=== PATIENT | male | born 1980 | race Caucasian/White ===

== ENCOUNTER 2020-01-09 09:52 | Emergency (ER) | payer MEDICAID, SELFPAY ==
[2020-01-09 09:53] VITALS: BP 131/46; PULSE 85; RESP 14; TEMP 36.6; O2SAT 98; BMI 26.6
--- NOTE | 2020-01-09 10:09 | EKG12_ITS ---
Test Reason : Blood Pressure : / mmHG Vent. Rate : 071 BPM Atrial Rate : 071 BPM P-R Int : 152 ms QRS Dur : 104 ms QT Int : 426 ms P-R-T Axes : 058 073 041 degrees QTc Int : 462 ms Normal sinus rhythm Normal ECG Confirmed by DEVANTE PINO, KIM ([id number]), script editor TRISH SAHNI ([id number]) on 01/10/2020 8:35:28 AM Referred By: IZABEL Confirmed By:KIM LOW MD
--- NOTE | 2020-01-09 10:11 | ED.VIS.GEN ---
History of Present Illness Chief Complaint: Anxiety Informant: Patient Onset: Days - 2- Context: Gradual Onset Timing: Continuous Quality: anxious Current Severity: Severe Maximum Severity: Severe Worsened by: unsure Relieved by: nothing Associated Symptoms: see below. Narrative: Patient states that he feels very anxious and when asked why he states just life. He would not elaborate any further on this, but does state that he does not drink alcohol daily but he did drink more heavily than usual for when he does drink several days ago, drinking about a 12 pack of beer. He woke up the next morning feeling really crummy, and so drank a little more beer to see if that would help but it did not, and he did not really feel better. This followed by left-sided soreness in his chest that has persisted, it is nonpleuritic, he has had abdominal discomfort, he was vomiting yesterday, myalgias, malaise, no lightheadedness or syncope, no fevers or chills, no contact with COVID-19 that he knows of and he has not had it that he knows of although he presents during the pandemic. May be causing all the symptoms but he does not know. He denies having all of the symptoms that then seem to cause anxiety. Past Medical History - Allergies and Home Meds Allergies/Adverse Reactions: Allergies No Known Allergies Allergy (Verified 01/09/20 09:53) Primary Care Physician: Nita Montes [NON-STAFF] - 1 Week if not improving Dentist,Your [STAFF PHYSICIAN] - (see attached resource list for dentists if needed) Past Medical History: None Alcohol: Occasional Drugs: None Review of Systems General: Reports: Malaise. Denies: Chills, Fever Eyes: Reports: - - toothache. Denies: Visual changes - bilaterally, Diplopia ENT: Denies: Bilateral ear pain, Rhinorrhea, Sore throat Cardiovascular: Reports: Chest pain. Denies: Palpitations Respiratory: Reports: Dyspnea. Denies: Cough, Dyspnea on exertion, Orthopnea Gastrointestinal: Reports: Abdominal pain, Nausea, Vomiting. Denies: Diarrhea, Melena, Hematochezia Genitourinary: Denies: Dysuria, Hematuria, Frequency Musculoskeletal: Reports: Myalgias. Denies: Swelling Skin: Denies: Rash, Wounds Neurological: Denies: Headache, Weakness, Numbness Psych: Reports: Depression, Anxiety. Denies: Suicidal thoughts, Suicidal ideations Physical Exam Vital Signs/Narrative: Vital Signs Temp Pulse Resp BP Pulse Ox 01/09/20 09:53 97.8 F 85 14 131/46 H 98 Inital Vital Signs reviewed: Yes General: Well nourished, Well developed, No Acute Distress Head: Normocephalic, Atraumatic Eyes: Perrl, EOMI ENT: Moist mucous membranes, No rhinorrhea Neck: Supple, Nontender Cardiovascular: Regular rate, Regular rhythm, No murmurs. Negative for: Tachycardia Respiratory: No distress, CTA bilaterally, Chest nontender Abdomen: Soft, Nondistended, Normal bowel sounds, Tender - mild, diffuse, more upper; subjective tenderness only. Negative for: Guarding, Rebound tenderness Back: Nontender, Normal Inspection Extremities: Nontender, No edema. Negative for: Calf Tenderness Skin: Normal color, No rash, No Trauma Neurological: Alert, Oriented x3, Cranial nerves II-XII grossly intact, Normal Strength, Normal Sensation, Normal Gait Psychological: Depressed - w/ poor eye contact, lots of sighing; no SI/HI, delusions, hallucinations. Logical goal-directed thought processes. Diagnostic/Tx/Re-eval Impressions Chest X-Ray 01/09/20 10:30 IMPRESSION: Normal x-ray examination of the chest. Electronically Signed: Garrett Mcfadden, at 10:48 EST , Service support , 01/09/20 10:30 Chest 1 View (Portable) [RAD] Stat Laboratory Results 01/09/20 01/09/20 01/09/20 10:20 10:20 11:07 WBC 4.7 RBC 5.09 Hgb 15.7 Hct 43.7 MCV 85.9 MCH 30.8 MCHC 35.9 RDW Std Deviation 38.7 RDW Coeff of Saranya 12.5 Plt Count 223 MPV 9.0 Immature Gran % (Auto) 0.200 Neut % (Auto) 65.3 Lymph % (Auto) 27.8 Kenton % (Auto) 5.5 Eos % (Auto) 0.8 Baso % (Auto) 0.4 Absolute Neuts (auto) 3.1 Absolute Lymphs (auto) 1.31 Nucleated RBC % 0 Sodium Cancelled 137 Potassium Cancelled 4.4 Chloride Cancelled 104 Carbon Dioxide Cancelled 27.0 Anion Gap Cancelled 6 BUN Cancelled 11 Creatinine Cancelled 0.87 Estim Creat Clear Calc Cancelled 123.88 Est GFR (MDRD) Af Amer Cancelled 124 Est GFR (MDRD) Non-Af Cancelled 103 BUN/Creatinine Ratio Cancelled 12.6 Glucose Cancelled 110 H Calcium Cancelled 8.2 L Total Bilirubin Cancelled 0.90 AST Cancelled 48 H ALT Cancelled 49 Alkaline Phosphatase Cancelled 69 Troponin I Cancelled < 0.015 Total Protein Cancelled 7.3 Albumin Cancelled 3.8 Globulin Cancelled 3.5 Albumin/Globulin Ratio Cancelled 1.1 Lipase Cancelled 169 - Rhythm Strip Rhythm Strip: Sinus Rhythm Rate: 71 Ectopy: None - EKG Initial EKG Interpretation: Sinus Rhythm, No Acute Injury Pattern - normal EKG - Medical Decision Making Work-up is negative. Patient was treated with a liter of IV fluid, Zofran, Toradol, and Ativan. He is feeling better. He then discussed the fact that he has been having a tooth ache for 2 or 3 weeks, I examined him, he has a mildly tender left maxillary canine that does not appear to be abscessed. There is no gingivitis, no necrotic tissue or bleeding, no trismus. He was placed on amoxicillin, and given prescriptions for Phenergan and Vistaril, and given follow-up. I did send a Covid test as an outpatient he was given appropriate discharge instructions regarding quarantining. ED Disposition - Plan for ED Patient: Disposition: Home or Assisted Living Diagnosis: Anxiety, Chest pain, Pain, dental Instructions: ED Stress React, ED Chest Pain NonCardiac Prescriptions: Amoxicillin 500 mg PO TID #30 tab Prescription Printed proMETHazine tablet [Phenergan] 25 mg PO Q6H PRN PRN #10 tab PRN Reason: Nausea Prescription Printed Hydroxyzine Pamoate [Vistaril] 50 mg PO TID PRN PRN #15 cap PRN Reason: Anxiety Prescription Printed Referrals: Dentist,Your [STAFF PHYSICIAN] - (see attached resource list for dentists if needed) Nita Montes [NON-STAFF] - 1 Week if not improving Additional Instructions: You were tested for COVID-19, however it is sent to an offsite laboratory, and will likely take 3-5 days to come back. Reference the pamphlet including with your discharge papers for information on setting up an online portal account to check the results yourself.
[2020-01-09] MEDS: 0.9% Normal Saline 1,000 ML 999 ML IV (10:20)
[2020-01-09] MEDS: Ondansetron 4 MG/2 ML Vial IV (10:21)
[2020-01-09] MEDS: Ketorolac 30 MG/ML Syringe IV (10:22)
[2020-01-09] MEDS: LORazepam 2 MG/ML Syringe 0.5 MG IV (10:23)
--- NOTE | 2020-01-09 10:30 | RAD_ITS ---
STUDY: X-RAY CHEST REASON FOR EXAM: Male, 39 years old. ANXIETY, CHEST DISCOMFORT TECHNIQUE: Single AP portable view of the chest. COMPARISON: None. FINDINGS: The lungs are clear and expanded. There is no demonstrated pleural abnormality. Normal size heart. Normal mediastinum and leland. Normal visualized pulmonary arteries. Normal visualized aortic arch and descending thoracic aorta. Normal visualized thoracic spine. Normal visualized ribs, clavicles, and shoulders. There is no demonstrated abnormality of the visualized soft tissue structures of the upper abdomen. RAD/Chest 1 View (Portable) IMPRESSION: Normal x-ray examination of the chest. Electronically Signed: Garrett Mcfadden, at 10:48 EST , Service support ,
[2020-01-09 10:43] LABS: Absolute Lymphocyte Count 1.31 X10^3/uL (0.83-4.51); Absolute Neutrophil Count 3.1 X10^3/uL (2.0-7.7); Basophil# 0.02 X10^3/uL; Basophil% 0.4 % (0-1); Eosinophil# 0.04 X10^3/uL; Eosinophils% 0.8 % (0-5); Hematocrit 43.7 % (40-54); Hemoglobin 15.7 g/dL (13.0-16.5); Lymphocyte # 1.31 X10^3/ul (4.0); Lymphocyte % 27.8 % (19-41); Mean Corp Hgb Conc 35.9 g/dL (32-36); Mean Corpuscular Hgb 30.8 pg (27.0-32.0); Mean Corpuscular Volume 85.9 fL (80-94); Monocyte# 0.26 X10^3/uL; Monocyte% 5.5 % (0-10); NRBC Flagged by Analyzer 0 % (0-5); Neutrophil # 3.07 X10^3/uL (2.7-7.7); Neutrophil % 65.3 % (47-70); Platelet Count 223 K/mm3 (150-450); RBC Distribution Width CV 12.5 % (11.6-14.6); RBC Distribution Width SD 38.7 fl (35.1-43.9); Red Blood Count 5.09 M/mm3 (4.6-6.2); White Blood Count 4.7 K/mm3 (4.4-11.0)
--- NOTE | 2020-01-09 11:06 | CM.ED ---
Social Work Consult: Anxiety Informant: Dr. Coy Patient in COVID-19 precautions. Telephone call to patient room. No answer. Telephone call to patient cell phone. No answer. No voicemail. Will continue to follow to attempt assessment. Cassie CIFUENTES, MIRTA
[2020-01-09 11:31] LABS: ALB/GLOB Ratio 1.1 RATIO (0.9-2.4); AST(SGOT) 48 U/L (15-37); Alanine Aminotransfer ALT/SGPT 49 U/L (16-61); Albumin, Serum 3.8 g/dL (3.2-5.0); Alkaline Phosphatase 69 U/L (45-117); Anion Gap 6 (5-15); BUN 11 mg/dL (7-18); BUN/Creat Ratio 12.6 RATIO (10-20); Calcium,Total 8.2 mg/dL (8.5-10.1); Chloride 104 mmol/L (98-107); Creatinine, Serum 0.87 mg/dL (0.70-1.30); EST Glomerular Filtration Rate 103 mL/min (>60); Est Glom Filt Rate - Afr Amer 124 mL/min (>60); Estimated Creatinine Clearance 123.88 ml/min; Globulin 3.5 g/dL (2.2-4.2); Glucose 110 mg/dL (74-106); Lipase 169 U/L (73-393); Potassium 4.4 mmol/L (3.5-5.1); Protein, Total 7.3 g/dL (6.4-8.2); Sodium Level 137 mmol/L (136-145)
--- NOTE | 2020-01-09 12:40 | CM.ED ---
Social Work Consult: Anxiety Informant: Self Referral Telephone call to patient room due to COVID-19 precautions being in affect. This clinical social work aide introduced self and clinical social work aide role. Patient agreeable to speak with this clinical social work aide. Patient reports to have a lot of stress in life currently. Patient denies suicidal thoughts/plans/intents. Patient reports to want to live and to be forward focused. 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 Patient currently has no insurance. Patient reports to have support in the community. Patient reports Anxiety as only mental health history and denies any inpatient psychiatric placement or currently counseling. Patient open to receiving resources. Patient is open to receiving resources for Medicaid, [facility] [employer] [facility], Transportation, Counseling services and [facility]. Patient reports to borrow vehicles for transportation. Patient denies any concerns on returning to community and reports to have transportation to home. Medical team updated. Patient resource packet placed with patient discharge information. Cassie CIFUENTES, MIRTA
[2020-01-09 13:18] VITALS: BP 136/80; PULSE 76; RESP 16; O2SAT 98
== END 2020-01-09 13:20 | disposition home or self-care (01) ==
PROVIDERS: Emergency Provider Emergency Medicine
DX: R07.89 Other chest pain (principal); F41.9 Anxiety disorder, unspecified; K08.89 Other specified disorders of teeth and supporting structures
CPT/HCPCS: 71045; 80053; 83690; 84484; 85025; 87635; 93005; 96361; 96374; 96375; 99283; J7030; A4216; J2405; U0003

== ENCOUNTER 2020-03-28 15:20 | Emergency (ER) | payer MEDICAID, SELFPAY ==
[2020-03-28 15:22] VITALS: BP 139/93; PULSE 103; RESP 16; TEMP 36.4; O2SAT 96; BMI 28.5
--- NOTE | 2020-03-28 15:51 | EKG12_ITS ---
Test Reason : Blood Pressure : / mmHG Vent. Rate : 086 BPM Atrial Rate : 086 BPM P-R Int : 154 ms QRS Dur : 100 ms QT Int : 366 ms P-R-T Axes : 025 072 030 degrees QTc Int : 437 ms Normal sinus rhythm Normal ECG Confirmed by HANNAH PINO, TAMI ([id number]), field map editor TRISH SAHNI ([id number]) on 04/01/2020 10:54:00 AM Referred By: SHIRA Confirmed By:DAVID YOUNG MD
--- NOTE | 2020-03-28 16:05 | ED.DCSUM_ITS ---
- ER Visit Summary Date of Service: 03/28/20 Chief Complaint: Abdominal pain History of Present Illness: The patient is a 39 M presenting with right upper quadrant abdominal pain. He states this started this morning. He has associated nausea and diarrhea. He has mild shortness of breath. He denies cough. Denies fever. He complains of myalgias. He has anxiety. Denies suicidal ideation. Denies known exposure to Covid. Denies other complaints. Physical Examination: Vitals are stable. Patient is afebrile. Alert no acute distress. HEENT exam is unremarkable. Neck is supple. Lungs are clear and equal bilaterally. Heart is regular rate and rhythm. Abdomen is soft mild right upper quadrant tenderness with no guarding or rebound Extremities are unremarkable. Skin is warm and dry. Remainder of exam is unremarkable. Emergency Department Course and Treatment: EKG is sinus rhythm rate of 86 with no acute ischemic changes. Chest x-ray shows no acute process. CBC, chemistries unremarkable. Liver enzymes show ALT 69, total bili 1.1, AST 82. Lipase is normal. Troponin is negative. D-dimer normal. Covid negative. Gallbladder ultrasound shows fatty liver. Patient was given IV fluids, Zofran. On reevaluation he is resting comfortably and is feeling improved. He is concerned about his anxiety. He continues to deny suicidal ideation. He is given prescription for Vistaril. Advised to follow-up with Dr. Eason commercial construction estimator for no doctor. Advised return to ED for worsening complaints. Disposition: Discharged home Impression: Abdominal pain, anxiety This note was generated with [employer] dictation software. It may contain incorrect words, spelling, and punctuation that were not noted in review of the chart prior to signing ED Disposition - Plan for ED Patient: Instructions: ED Anxiety Reaction, ED Unknown Causes of Abdominal ... Prescriptions: hydrOXYzine pamoate capsule [Vistaril] 25 mg PO TID PRN PRN #20 cap PRN Reason: Anxiety Prescription Printed Referrals: Reuben Eason III, MD [STAFF PHYSICIAN] - Care Physician,No Primary [Primary Care Provider] -
[2020-03-28] MEDS: Ondansetron 4 MG/2 ML Vial IV (16:14)
[2020-03-28] MEDS: 0.9% Normal Saline 1,000 ML 1000 ML IV (16:14)
--- NOTE | 2020-03-28 16:15 | RAD_ITS ---
STUDY: X-RAY CHEST REASON FOR EXAM: Male, 39 years old. abd pain, back pain, weakness, chills -- HX ASTHMA TECHNIQUE: Single AP portable view of the chest. COMPARISON: 01/09/2020 FINDINGS: The lungs are clear and expanded. There is no demonstrated pleural abnormality. Normal size heart. Normal mediastinum and leland. Normal visualized pulmonary arteries. Normal visualized aortic arch and descending thoracic aorta. Normal visualized thoracic spine. Normal visualized ribs, clavicles, and shoulders. There is no demonstrated abnormality of the visualized soft tissue structures of the upper abdomen. RAD/Chest 1 View (Portable) IMPRESSION: Normal x-ray examination of the chest. Electronically Signed: Karel Baxter MD at 16:33 EST Tel , Service support ,
[2020-03-28 16:16] VITALS: BP 140/93; PULSE 85; RESP 14; O2SAT 97
[2020-03-28 16:18] LABS: Absolute Lymphocyte Count 1.39 X10^3/uL (0.83-4.51); Absolute Neutrophil Count 3.9 X10^3/uL (2.0-7.7); Basophil# 0.03 X10^3/uL; Basophil% 0.5 % (0-1); Eosinophil# 0.08 X10^3/uL; Eosinophils% 1.4 % (0-5); Hematocrit 48.7 % (40-54); Hemoglobin 16.6 g/dL (13.0-16.5); Lymphocyte # 1.39 X10^3/ul (4.0); Lymphocyte % 23.6 % (19-41); Mean Corp Hgb Conc 34.1 g/dL (32-36); Mean Corpuscular Hgb 30.1 pg (27.0-32.0); Mean Corpuscular Volume 88.4 fL (80-94); Mean Platelet Vol. 8.3 fl (6.2-12.0); Monocyte# 0.49 X10^3/uL; Monocyte% 8.3 % (0-10); NRBC Flagged by Analyzer 0 % (0-5); Neutrophil # 3.89 X10^3/uL (2.7-7.7); Neutrophil % 65.9 % (47-70); Platelet Count 168 K/mm3 (150-450); RBC Distribution Width CV 12.6 % (11.6-14.6); RBC Distribution Width SD 41.1 fl (35.1-43.9); Red Blood Count 5.51 M/mm3 (4.6-6.2); White Blood Count 5.9 K/mm3 (4.4-11.0)
[2020-03-28 16:31] LABS: D-Dimer Quantitative (DVT/PE) 0.34 FEU/ug/m (0.27-0.49)
[2020-03-28 16:36] LABS: AST(SGOT) 82 U/L (15-37); Alanine Aminotransfer ALT/SGPT 69 U/L (16-61); Alkaline Phosphatase 82 U/L (45-117); Anion Gap 7 (5-15); BUN 9 mg/dL (7-18); BUN/Creat Ratio 10.3 RATIO (10-20); Calcium,Total 9.2 mg/dL (8.5-10.1); Chloride 103 mmol/L (98-107); Creatinine, Serum 0.88 mg/dL (0.70-1.30); EST Glomerular Filtration Rate 102 mL/min (>60); Est Glom Filt Rate - Afr Amer 123 mL/min (>60); Estimated Creatinine Clearance 122.47 ml/min; Globulin 3.9 g/dL (2.2-4.2); Glucose 91 mg/dL (74-106); Lipase 265 U/L (73-393); Protein, Total 7.9 g/dL (6.4-8.2); Sodium Level 135 mmol/L (136-145)
--- NOTE | 2020-03-28 16:38 | US_ITS ---
STUDY: ABDOMINAL ULTRASOUND - RIGHT UPPER QUADRANT REASON FOR VISIT: Male, 39 years old RUQ PAIN TECHNIQUE: Ultrasound evaluation of the right upper quadrant was performed with real-time and static hay-scale imaging. TECHNICAL QUALITY: Adequate. COMPARISON: None. FINDINGS: Liver: The liver measures 17.4 cm. There is increased echogenicity consistent with fatty infiltration. The bile ducts are within normal limits. There is hepatic color flow. The direction of portal flow is hepatopetal. There is no demonstrated mass lesion. Gallbladder: Normal distended gallbladder. The gallbladder wall measures 2 mm. There is a negative sonographic Head''s sign. There is no pericholecystic fluid. There are no gallstones. Common Bile Duct (C.B.D.): The common bile duct measures 5 mm. Pancreas: Normal size of the head, body and tail of the pancreas. There is normal echogenicity of the pancreas. There is no demonstrated pancreatic mass or cyst. Right Kidney: Normal size of the right kidney. The right kidney measures 11.9 cm. Normal renal cortex. The right cortex measures 1.2 cm. Tiny subcentimeter exophytic cyst in the midsection right kidney. There is no right hydronephrosis. US/Abdomen Limited IMPRESSION: Fatty infiltration of the liver. Electronically Signed: Karel Baxter MD at 17:55 EST Tel , Service support ,
[2020-03-28 18:06] VITALS: BP 135/89; PULSE 90; RESP 19; O2SAT 95
--- NOTE | 2020-03-28 18:24 | ED.DEP ---
ED Disposition - Plan for ED Patient: Instructions: ED Anxiety Reaction, ED Unknown Causes of Abdominal ... Prescriptions: hydrOXYzine pamoate capsule [Vistaril] 25 mg PO TID PRN PRN #20 cap PRN Reason: Anxiety Prescription Printed Referrals: Care Physician,No Primary [Primary Care Provider] - Reuben Eason III, MD [STAFF PHYSICIAN] -
[2020-03-28 18:36] VITALS: BP 159/79; PULSE 91; RESP 18; O2SAT 99
--- NOTE | 2020-03-28 18:37 | ED.RN ---
THIS NURSE REVIEWED D/C INSTRUCTIONS WITH PT. PT VERBALIZED UNDERSTANDING OF INSTRUCTIONS. IV D/C. IV CATHETER INTACT. PT TOLERATED WELL. PT DENIES FURTHER NEEDS OR QUESTIONS AT THIS TIME.
== END 2020-03-28 18:38 | disposition home or self-care (01) ==
LOC: ED 16:15
PROVIDERS: Emergency Provider Emergency Medicine
DX: R10.11 Right upper quadrant pain (principal); F41.9 Anxiety disorder, unspecified; K76.0 Fatty (change of) liver, not elsewhere classified
CPT/HCPCS: 71045; 76705; 80053; 83690; 84484; 85025; 85379; 87426; 93005; 96361; 96374; 99283; J7030; J2405

== ENCOUNTER 2020-05-20 14:55 | Emergency (ER) | payer MEDICAID, SELFPAY ==
[2020-05-20 14:57] VITALS: BP 168/110; PULSE 110; RESP 16; TEMP 36.1; O2SAT 95; BMI 29.2
--- NOTE | 2020-05-20 15:21 | ED.VIS.GEN ---
History of Present Illness Chief Complaint: Substance Abuse Informant: Patient Narrative: Already 1-year-old male presents the emergency department asking for detox from alcohol. He tells me that he tried to detox himself in the past and it was very bad. He tells me that prior to 's Day he would drink every day but only a couple of beers and stuff like that. Tells me on 's Day he drinks at least 2/5 of whiskey and since that time has been drinking vodka and beer. He drank a bottle of wine prior to arriving in the emergency department to be able to just come in here. He states that he went through divorce and used to have a significant income. He stops speaking closes his eyes and wishes to change the subject with any further questioning along those lines. He denies any drug use. No recent illnesses. He states that due to the bottle of wine he is not having any withdrawal symptoms at the present time. Past Medical History - Allergies and Home Meds Allergies/Adverse Reactions: Allergies No Known Allergies Allergy (Verified 05/20/20 14:58) Primary Care Physician: [facility] [STAFF PHYSICIAN] - Past Medical History: - - Alcoholism Surgical History: noncontributory Lives: Alone Smoking Status: Never smoker Alcohol: Heavy Drugs: None Review of Systems General: Denies: Chills, Fever, Sweats Eyes: Denies: Visual changes - bilaterally, Diplopia ENT: Denies: Rhinorrhea, Sore throat Cardiovascular: Denies: Chest pain, Palpitations Respiratory: Denies: Dyspnea, Cough, Dyspnea on exertion Gastrointestinal: Denies: Abdominal pain, Nausea, Vomiting, Diarrhea, Melena, Hematochezia Genitourinary: Denies: Dysuria, Hematuria, Frequency Musculoskeletal: Denies: Back pain, Extremity Pain Skin: Denies: Rash, Wounds Neurological: Denies: Headache, Weakness, Numbness Psych: Reports: Depression, Anxiety. Denies: Suicidal thoughts, Suicidal ideations Physical Exam Vital Signs/Narrative: Vital Signs Temp Pulse Resp BP Pulse Ox 05/20/20 14:57 96.9 F L 110 H 16 168/110 H 95 Inital Vital Signs reviewed: Yes General: Well nourished, Well developed, No Acute Distress Head: Normocephalic, Atraumatic Eyes: Perrl, EOMI ENT: Moist mucous membranes, No rhinorrhea Neck: Supple, Nontender Cardiovascular: Regular rate, Regular rhythm, No murmurs Respiratory: No distress, CTA bilaterally, Chest nontender Abdomen: Soft, Nontender, Nondistended, Normal bowel sounds Back: Nontender, Normal Inspection Extremities: Nontender, No edema Skin: Normal color, No rash Neurological: Alert, Oriented x3, Cranial nerves II-XII grossly intact, Normal Strength, Normal Sensation Psychological: Depressed, Tearful - At times Diagnostic/Tx/Re-eval Chest X-Ray - ED: Left Infiltrate Laboratory Last Values Urine Opiates Screen NEGATIVE (< 300 ng/mL) 05/20/20 15:23 Urine Methadone Screen NEGATIVE (< 300 ng/mL) 05/20/20 15:23 Ur Barbiturates Screen NEGATIVE (< 200 ng/mL) 05/20/20 15:23 Ur Phencyclidine Scrn NEGATIVE (< 25 ng/mL) 05/20/20 15:23 Ur Amphetamines Screen NEGATIVE (<1000 ng/mL) 05/20/20 15:23 U Methamphetamin-MDMA NEGATIVE (< 500 ng/mL) 05/20/20 15:23 U Benzodiazepines Scrn NEGATIVE (< 200 ng/mL) 05/20/20 15:23 Urine Cocaine Screen NEGATIVE (< 300 ng/mL) 05/20/20 15:23 U Cannabinoids Screen NEGATIVE (< 50 ng/mL) 05/20/20 15:23 Ur Drug Screen Comment 05/20/20 15:23 - Medical Decision Making ED addiction labs will be obtained. If the patient is agreeable to inpatient detox program rules I will talk with the hospitalist for admission. Unfortunately the patient has decided that being away from his cell phone and not being able to chew tobacco is going to prohibit him from seeking detox. Therefore he has made the decision to leave. Patient appears to have the capacity to do so. ED Disposition - Plan for ED Patient: Disposition: Against Medical Advice Diagnosis: Alcohol abuse, Alcohol withdrawal Instructions: ED Alcohol Abuse Referrals: [facility] [STAFF PHYSICIAN] -
--- NOTE | 2020-05-20 15:37 | ED.RN ---
THIS NURSE WENT INTO ROOM TO GO OVER RAMP CONTRACT. PT UPSET BECAUSE THE CONTRACT STATES NO PERSONAL BELONGINGS. PT WOULD LIKE CELLPHONE WHILE IN PROGRAM AND I EDUCATED PT WHY THERE ARE NO BELONGINGS DURING THE PROGRAM. PT UPSET STATING THATS A DUMBASS RULE, WITH NO CELL PHONE THAT WILL RUIN MY LIFE. DR STOVER MADE AWARE. 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
[2020-05-20 15:52] LABS: Amphetamine Urine VISTA NEGATIVE (<1000 ng/mL); Barbiturate Urine VISTA NEGATIVE (< 200 ng/mL); Benzodiazepine Urine VISTA NEGATIVE (< 200 ng/mL); Cocaine Urine VISTA NEGATIVE (< 300 ng/mL); Ecstacy Urine VISTA NEGATIVE (< 500 ng/mL); Methadone Urine VISTA NEGATIVE (< 300 ng/mL); PCP Urine VISTA NEGATIVE (< 25 ng/mL); THC Urine VISTA NEGATIVE (< 50 ng/mL); Vista UDS pH Range 5
--- NOTE | 2020-05-20 16:00 | CM.ED ---
SOCIAL WORK Referral Source: NurseNikia Reason for Consult: Substance Abuse resources Met with patient in room. Introduced role and reason for consult. Patient standing at bedside and putting on shirt upon this worker entering room. Patient states I came here for help and you guys want to take my phone. That is not going to help me. Patient presented for detox from alcohol. Patient states girlfriend and children do not know he is here and did not want them to know. Patient states, I just wanted to keep my phone so I could stay in contact with them. Patient unhappy about RAMP agreement. Patient asking if anything can be done. 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 Patient states wishes to leave. Attempted to give patient community resources. Patient declined resources. Nurse updated on the above. VANE Solano, GUM MAKER
--- NOTE | 2020-05-20 16:20 | ED.RN ---
PT SPOKE WITH CLOTH TESTER DANI. ROY DECIDING TO LEAVE AND NOT DO RAMP PROGRAM.
== END 2020-05-20 18:16 | disposition left against medical advice (07) ==
PROVIDERS: Emergency Provider Emergency Medicine
DX: F10.239 Alcohol dependence with withdrawal, unspecified (principal)
CPT/HCPCS: 80307; 99281; A4216

== ENCOUNTER 2020-05-21 11:54 | Inpatient (IN) | payer MEDICAID, SELFPAY ==
[2020-05-20 14:57] VITALS: BMI 29.2
[2020-05-21 11:56] VITALS: BP 140/93; PULSE 105; RESP 16; TEMP 36.6; O2SAT 96; BMI 29.1
--- NOTE | 2020-05-21 12:11 | ED.VISSUMM ---
- ER Visit Summary Date of Service: 05/21/20 Chief Complaint: [Requesting detox from alcohol] History of Present Illness: The patient is a 40 M [presents to the emergency department stating that he has been drinking heavily since [facility] [place] Day. Patient is chasing the dragon meaning that once he gets drunk he just wants to keep chasing that high. Patient has detoxed on his own in the past but never through a formal program. He was seen in the emergency department yesterday and did not feel he could be without his cell phone and chewing tobacco so he left. Patient is ready now to be admitted and go through a detox program. His last alcoholic drink was about an hour ago. Patient states that he drinks everything from beer to liquor at a wine. He denies any illicit drug use. He otherwise has no medical history. He denies any depression or suicidality.] Physical Examination: [HEENT-PERRLA, EOMI. Cranial nerves II through XII grossly intact. TMs clear. Mucous membranes moist. No adenopathy. Cardiovascular-regular rate and rhythm without murmur or ectopy Lungs-clear to auscultation, chest wall stable without crepitus or subcu emphysema Abdomen-normoactive bowel sounds, soft, nontender, no rebound or rigidity, no peritoneal signs. Extremities-intact ?4, normal range of motion, normal pulses, atraumatic] Test Results: [CBC with it was normal. Chemistries and LFTs were normal. Toxicology screen was negative. Alcohol level pending.] Emergency Department Course and Treatment: [The line established on arrival.] Treatment Plan: [Discussed with hospitalist will evaluate patient for admission] Disposition: [Admit] Impression: [Alcohol abuse Request for detox from alcohol] This note was generated with [employer] dictation software. It may contain incorrect words, spelling, and punctuation that were not noted in review of the chart prior to signing ED Disposition - Plan for ED Patient: Referrals: Care Physician,No Primary [Primary Care Provider] -
[2020-05-21 12:41] LABS: Absolute Lymphocyte Count 2.28 X10^3/uL (0.83-4.51); Absolute Neutrophil Count 3.2 X10^3/uL (2.0-7.7); Basophil# 0.03 X10^3/uL; Basophil% 0.5 % (0-1); Eosinophils% 3.3 % (0-5); Hemoglobin 17.2 g/dL (13.0-16.5); Lymphocyte # 2.28 X10^3/ul (4.0); Lymphocyte % 37.6 % (19-41); Mean Corp Hgb Conc 35.1 g/dL (32-36); Mean Corpuscular Hgb 31.4 pg (27.0-32.0); Mean Corpuscular Volume 89.4 fL (80-94); Mean Platelet Vol. 8.4 fl (6.2-12.0); Monocyte# 0.38 X10^3/uL; Monocyte% 6.3 % (0-10); NRBC Flagged by Analyzer 0 % (0-5); Neutrophil # 3.15 X10^3/uL (2.7-7.7); Neutrophil % 51.8 % (47-70); Platelet Count 209 K/mm3 (150-450); RBC Distribution Width CV 12.5 % (11.6-14.6); Red Blood Count 5.48 M/mm3 (4.6-6.2); White Blood Count 6.1 K/mm3 (4.4-11.0)
[2020-05-21 12:57] LABS: ALB/GLOB Ratio 1.1 RATIO (0.9-2.4); AST(SGOT) 36 U/L (15-37); Alanine Aminotransfer ALT/SGPT 41 U/L (16-61); Albumin, Serum 4.3 g/dL (3.2-5.0); Alkaline Phosphatase 80 U/L (45-117); Anion Gap 9 (5-15); BUN 12 mg/dL (7-18); BUN/Creat Ratio 12.5 RATIO (10-20); Calcium,Total 8.9 mg/dL (8.5-10.1); Chloride 106 mmol/L (98-107); Creatinine, Serum 0.96 mg/dL (0.70-1.30); EST Glomerular Filtration Rate 92 mL/min (>60); Est Glom Filt Rate - Afr Amer 111 mL/min (>60); Estimated Creatinine Clearance 111.15 ml/min; Globulin 3.9 g/dL (2.2-4.2); Glucose 107 mg/dL (74-106); Potassium 3.9 mmol/L (3.5-5.1); Protein, Total 8.2 g/dL (6.4-8.2); Sodium Level 141 mmol/L (136-145)
[2020-05-21 12:57] LABS: Amphetamine Urine VISTA NEGATIVE (<1000 ng/mL); Barbiturate Urine VISTA NEGATIVE (< 200 ng/mL); Benzodiazepine Urine VISTA NEGATIVE (< 200 ng/mL); Cocaine Urine VISTA NEGATIVE (< 300 ng/mL); Ecstacy Urine VISTA NEGATIVE (< 500 ng/mL); Methadone Urine VISTA NEGATIVE (< 300 ng/mL); PCP Urine VISTA NEGATIVE (< 25 ng/mL); THC Urine VISTA NEGATIVE (< 50 ng/mL); Vista UDS pH Range 6
--- NOTE | 2020-05-21 13:08 | NURSING ---
MED SURG ROSA ETOH ABUSE, REQUEST FOR DETOX
--- NOTE | 2020-05-21 13:22 | CM.ED ---
SOCIAL WORK Reason for Consult: Substance Abuse- patient requesting detox from alcohol Patient presents to ER for detox from alcohol. Patient was seen yesterday for same and would not sign agreement for RAMP as he did not want to be without his phone. Nurse, Palma reviewed RAMP agreement with patient again today. Patient now in agreement. RAMP agreement signed by patient. Patient reports last drink was an hour prior to arrival. Call to [facility] Treatment Navigator, [place]. Updated on patient's admission to [facility]. [place] reports will update Renae who will complete assessment. Plan: Admit to [facility] Maicol Mckinley MSW, PUBLIC EVENTS FACILITIES RENTAL MANAGER
[2020-05-21 13:23] VITALS: BP 147/100; PULSE 89; RESP 16; TEMP 36.8; O2SAT 95
[2020-05-21 14:35] VITALS: BMI 27.1
[2020-05-21 14:44] VITALS: BMI 27.2
[2020-05-21] MEDS: Gabapentin 300 MG Capsule PO (15:41)
[2020-05-21] MEDS: Lactated Ringers 1,000 ML 100 ML IV (15:42)
[2020-05-21] MEDS: Phenobarbital 32.4 MG Tablet 64.8 MG PO ×3 (15:42→22:48)
[2020-05-21] MEDS: 0.9% Saline Lock 10 ML Syringe IV (15:43)
[2020-05-21 16:25] VITALS: RESP 16; O2SAT 98
--- NOTE | 2020-05-21 16:52 | HP.PCM_ITS ---
Problem List (1) Alcohol withdrawal Status: Acute (2) Alcohol abuse Status: Chronic (3) Erythrocytosis Status: Chronic (4) Tobacco chew use Status: Chronic History of Present Illness Date of Admission: 05/21/20 Mr. Rizzo is a 40 year old WM with a past medical history of alcohol abuse chewing tobacco abuse presented to the emergency department [facility] on 05/21/2020 requesting acute alcohol detox. He reports he fell off the wagon since [facility] [employer] but reported that he had not been drinking much prior to that. He estimates that he drinks at least 1/5 a day but probably more and drinks any alcohol he can possibly get his hands on. Who presented to the emergency department yesterday but did not feel he could go without his cell phone or was chewing tobacco so he left, but at this time he feels he is ready to go through the detox program. He is never been through detox program in the past. He denies any illicit drug use and has no other medical issues. Reports that he feels that he is starting to withdrawal and that his last drink was approximately 1 hour and a half prior to arrival. His vital signs in the em ergency department show that he is afebrile, mildly tachycardic with a heart rate of 105, hypertensive with a blood pressure of 140/93, his respiratory rate is 16 and his oxygen saturations are 96 on room air. His labs are overall unremarkable and his tox screen is positive only for alcohol with a blood alcohol level of 318. He will be admitted to [facility] for alcohol detox. Past Medical History Past Medical History (Chronic Problems): Chronic Problems Alcohol abuse (Chronic) Erythrocytosis (Chronic) Tobacco chew use (Chronic) Allergies No Known Allergies Allergy (Verified 05/21/20 11:56) Home Medications: Ambulatory Orders Medication Instructions Recorded hydrOXYzine pamoate capsule 25 mg PO TID PRN PRN #20 cap 03/28/20 [Vistaril] Surgical History: noncontributory Lives: With Family Smoking Status: Current every day smoker Tobacco Use: Chew Alcohol: Heavy Drugs: None Review of Systems Constitutional: Reports: Chills, Fatigue. Denies: Anorexia, Fever, Night Sweats, Malaise, Weakness, Weight Change Eyes: Denies: Blurred vision, Conjunctivae Inflammation, Double vision, Drainage, Eyelid Inflammation, Pain, Redness, Vision Change HEENT: Denies: Difficulty Hearing, Difficulty Swallowing, Ear Pain, Eye Pain, Head Aches, Nasal bleeding, Nasal Congestion, Post Nasal Drip, Sinus Congestion, Sinus Drainage, Sore Throat, Visual Changes Cardiovascular: Denies: Chest Pain, Claudication, Chest Pressure, Chest Tightness, Edema, Heaviness, Light Headedness, Orthopnea, Palpitations, Paroxysmal Noc. Dyspnea, Syncope Respiratory: Denies: Cough, Hemoptysis, Pleuritic Pain, Shortness of Breath, Sputum production, Wheezing Gastrointestinal: Reports: Nausea. Denies: Abdominal Pain, Constipation, Diarrhea, Dyspepsia, Hematemesis, Hematochezia, Melena, Vomiting Genitourinary: Denies: Dysuria, Frequency, Hematuria, Hesitancy, Incontinence, Nocturia, Retention, Urgency Musculoskeletal: Denies: Back Pain, Joint Pain, Joint stiffness, Joint swelling, Joint Tenderness, Muscle pain, Neck Pain Skin: Denies: Dryness, Jaundice, Lesions, Pruritis, Rash, Wounds Neurological: Reports: Tremor. Denies: Balance problems, Blurred vision, Double vision, Change in Speech, Slurred speech, Confusion, Difficulty swallowing, Focal weakness, Headaches, Incoordination, Numbness, Tingling, Seizures Psychiatric: Denies: Anxiety, Depression Endocrine: Denies: Change in Body Habitus, Heat/ Cold Intolerance, Polydipsia, Polyuria Hematologic/ Lymphatic: Denies: Adenopathy, Anemia, Easy Bruising, Easy Bleeding, Petechiae, Purpura VTE Information - Inpt Only VTE Present on Admission: No VTE Mechan Device Prophylaxis: None VTE Pharm Prophylaxis ordered?: No Reason prophylaxis not ordered:: Treatment Not Indicated - Early ambulation - Physical Exam Vitals/I&O's: Vital Signs Temp Pulse Resp BP Pulse Ox 98.2 F 89 16 147/100 H 98 05/21/20 13:23 05/21/20 13:23 05/21/20 16:25 05/21/20 13:23 05/21/20 16:25 Oxygen Delivery Method Room Air Weight: 91 kg Body Mass Index (BMI) 27.1 General: Alert, Oriented x3, Cooperative, No apparent distress, Well developed, Well nourished, - - Legs white male, lying in bed, DIP of 2 in his mouth, mildly tremulous, no acute distress nontoxic HEENT: Atraumatic, PERRLA, EOMI, Normocephalic, EAC Clear Oral: No Gingival or Mucosal Lesions/ Ulcerations, Dry Mucosa, - - Tobacco lower lip active view of mucosa-reevaluate tomorrow Neck: Supple, No JVD, Trachea Midline, Thyroid Normal Size and Texture Lungs: Clear to auscultation, Normal air movement, No rhonchi, No wheeze, No rales Cardiovascular: Regular Rhythm, Normal S1, Normal S2, No murmurs, No Ectopic Activity, No rub noted, No Gallop, Tachycardic - Mild Abdomen: Bowel Sounds Present, Soft, Non Tender, Non-Distended Extremities: No clubbing, No cyanosis, No edema, Capillary Refill Less than 3 Seconds, Peripheral Pulses Normal Neurological: Cranial nerves II-XII grossly intact, Neuro grossly intact, Muscle tone normal, Sensory exam intact to light touch and pain, Coordination normal Psych/Mental Status: Appropriate, Flat Affect Laboratory Results 05/21/20 12:30: WBC 6.1, RBC 5.48, Hgb 17.2 H, Hct 49.0, MCV 89.4, MCH 31.4, MCHC 35.1, RDW Std Deviation 41.0, RDW Coeff of [place] 12.5, Plt Count 209, MPV 8.4, Immature Gran % (Auto) 0.500, Neut % (Auto) 51.8, Lymph % (Auto) 37.6, [place] % (Auto) 6.3, Eos % (Auto) 3.3, Baso % (Auto) 0.5, Absolute Neuts (auto) 3.2, Absolute Lymphs (auto) 2.28, Nucleated RBC % 0 05/21/20 12:30: Sodium 141, Potassium 3.9, Chloride 106, Carbon Dioxide 26.0, Anion Gap 9, BUN 12, Creatinine 0.96, Estim Creat Clear Calc 111.15, Est GFR (MDRD) Af Amer 111, Est GFR (MDRD) Non-Af 92, BUN/Creatinine Ratio 12.5, Glucose 107 H, Calcium 8.9, Total Bilirubin 0.60, AST 36, ALT 41, Alkaline Phosphatase 80, Total Protein 8.2, Albumin 4.3, Globulin 3.9, Albumin/Globulin Ratio 1.1 05/21/20 12:30: Ethyl Alcohol 318.0 H* 05/21/20 12:37: Urine Opiates Screen NEGATIVE, Urine Methadone Screen NEGATIVE, Ur Barbiturates Screen NEGATIVE, Ur Phencyclidine Scrn NEGATIVE, Ur Amphetamines Screen NEGATIVE, U Methamphetamin-MDMA NEGATIVE, U Benzodiazepines Scrn NEGATI VE, Urine Cocaine Screen NEGATIVE, U Cannabinoids Screen NEGATIVE, Ur Drug Screen Comment Current Medications Al Hydroxide/Mg Hydroxide (Mag Hydrox/Al Hydrox/Simeth 30 Ml Udc) 30 ml PO Q6H PRN PRN PRN Reason: Gastric Burning Albuterol Sulfate (Albuterol 2.5 Mg/3 Ml Vial.Neb.) 2.5 mg INHALATION Q2H PRN PRN PRN Reason: Shortness of Breath/Wheezing Dicyclomine HCl (Dicyclomine 10 Mg Capsule) 20 mg PO Q6H PRN PRN PRN Reason: abdominal discomfort Folic Acid (Folic Acid 1 Mg Tablet) 1 mg PO DAILY@0800 [facility] Gabapentin (Gabapentin 300 Mg Capsule) 300 mg PO Q8H PRN PRN PRN Reason: moderate to severe anxiety Last Admin: 05/21/20 15:41 Dose: 300 mg Documented by: Hydroxyzine Pamoate (Hydroxyzine Sol 25 Mg Capsule) 50 mg PO Q4H PRN PRN PRN Reason: mild anxiety Lactated Ringer's () 1,000 mls @ 100 mls/hr IV .Q10H BREANN Stop: 05/22/20 00:31 Last Admin: 05/21/20 15:42 Dose: 100 mls/hr Documented by: Loperamide HCl (Loperamide 2 Mg Capsule) 2 mg PO Q4H PRN PRN PRN Reason: LOOSE STOOLS Lorazepam (Lorazepam 1 Mg Tablet) 2 mg PO Q2H PRN PRN; Protocol PRN Reason: CIWA score > 8 but <15 Lorazepam (Lorazepam 1 Mg Tablet) 2 mg PO UD PRN; Protocol PRN Reason: CIWA score >/=15. Melatonin (Melatonin 3 Mg Tablet) 3 mg PO QHS PRN PRN PRN Reason: INSOMNIA Multivitamins/Minerals (Multivitamins,Ther W-Minerals Tablet) 1 tablet PO [facility]CM [facility] Ondansetron HCl (Ondansetron 8 Mg Tablet) 8 mg PO Q8H PRN PRN PRN Reason: NAUSEA Phenobarbital (Phenobarbital 32.4 Mg Tablet) 97.2 mg PO Q4H BREANN; Taper Stop: 05/25/20 22:59 Last Admin: 05/21/20 15:42 Dose: 97.2 mg Documented by: Sodium Chloride (0.9% Saline Lock 10 Ml Syringe) 10 - 40 ml IV UD PRN PRN Reason: SALINE FLUSH Last Admin: 05/21/20 15:43 Dose: 10 ml Documented by: Thiamine HCl (Thiamine Hydrochloride 100 Mg Tablet) 200 mg PO DAILYCM BREANN Stop: 05/25/20 08:01 Trazodone HCl (Trazodone 100 Mg Tablet) 100 mg PO QHS PRN PRN Reason: INSOMNIA Assessment/Plan All Active Problems Alcohol withdrawal (Acute) Acute alcohol withdrawal -Phenobarb taper -As needed Ativan -Thiamine/folate -Supportive medications -180 consultation Erythrocytosis -Suspect mild dehydration -Repeat CBC in a.m. -IV fluids x1 L today Alcohol abuse-chronic -See above Tobacco abuse -Patient uses chewing tobacco -Nicotine replacement ordered DVT prophylaxis -Early ambulation CODE STATUS -Full code Inpatient E&M: 10482 Init Hosp L2
[2020-05-21 18:00] VITALS: BP 114/74; PULSE 87; RESP 18; TEMP 36.4; O2SAT 97
[2020-05-21] MEDS: hydrOXYzine PAM 25 MG Capsule 50 MG PO (18:43)
[2020-05-21] MEDS: LORazepam 1 MG Tablet 2 MG PO ×2 (18:45→22:48)
[2020-05-21 22:42] VITALS: BP 127/77; PULSE 99; RESP 18; TEMP 36.8; O2SAT 95
[2020-05-21] MEDS: traZODone 100 MG Tablet PO (22:48)
[2020-05-22] MEDS: Phenobarbital 32.4 MG Tablet 64.8 MG PO ×6 (02:53→23:18)
[2020-05-22] MEDS: Gabapentin 300 MG Capsule PO ×2 (02:53→21:54)
[2020-05-22] MEDS: 0.9% Saline Lock 10 ML Syringe IV ×2 (02:55→15:15)
[2020-05-22 02:56] VITALS: BP 125/75; PULSE 97; RESP 17; TEMP 36.6; O2SAT 98
[2020-05-22] MEDS: hydrOXYzine PAM 25 MG Capsule 50 MG PO (06:42)
[2020-05-22 08:24] VITALS: BP 132/84; PULSE 75; RESP 16; TEMP 36.7; O2SAT 96
[2020-05-22] MEDS: Thiamine Hydrochloride 100 MG Tablet 200 MG PO (08:30)
[2020-05-22] MEDS: Folic Acid 1 MG Tablet PO (08:30)
[2020-05-22] MEDS: Multivitamins,Ther W-Minerals Tablet 1 TABLET PO (08:30)
--- NOTE | 2020-05-22 09:54 | ADDICTION ---
This singer songwriter met with PT in his room to conduct ASAM, MSE, AUDIT assessments and to plan for d/c. PT A+Ox4 and participated appropriately. All assessments completed and faxed to [facility] and placed in PT's chart. PT did not request assistance with transportation. PT to f[facility]u with [facility] for [facility] and counseling services and was provided contact information for AoD agencies in [place] and [facility].
[2020-05-22 10:54] VITALS: BP 151/91; PULSE 100; RESP 18; TEMP 36.9; O2SAT 95
[2020-05-22] MEDS: Loperamide 2 MG Capsule PO ×2 (11:47→18:25)
--- NOTE | 2020-05-22 12:19 | PCM.PN.HOSP ---
Patient Problems: Active and Suspected Problems Alcohol withdrawal (Acute) Subjective: States he is feeling much better today. 180 is at the bedside having a conversation with the patient and the plan is to follow-up with the counseling center as he is already established there and other resources for alcohol addiction or made available to the patient. Vitals/I&O's: Vital Signs Temp Pulse Resp BP Pulse Ox 98.4 F 100 18 151/91 H 95 05/22/20 10:54 05/22/20 10:54 05/22/20 10:54 05/22/20 10:54 05/22/20 10:54 Oxygen Delivery Method Room Air Weight: 91 kg Body Mass Index (BMI) 27.1 Intake and Output for Last 24 Hours 05/20/20 05/21/20 05/22/20 23:59 23:59 23:59 Intake Total 2700 / 2700 Balance 2700 / 2700 General: Alert, Oriented x3, Cooperative, No apparent distress, Well developed, Well nourished, - - Patient sitting up in bed, appears much more comfortable than yesterday HEENT: Atraumatic, Normocephalic Oral: Moist Mucosa, No Gingival or Mucosal Lesions/ Ulcerations Lungs: Clear to auscultation, Normal air movement, No rhonchi, No wheeze, No rales Cardiovascular: Regular rate, Regular Rhythm, Normal S1, Normal S2, No murmurs, No Ectopic Activity, No rub noted Abdomen: Bowel Sounds Present, Soft, Non Tender Extremities: No clubbing, No cyanosis, No edema, Capillary Refill Less than 3 Seconds, Peripheral Pulses Normal Neurological: Cranial nerves II-XII grossly intact, Neuro grossly intact Psych/Mental Status: Normal Affect, Appropriate Laboratory Results 05/21/20 12:30: WBC 6.1, RBC 5.48, Hgb 17.2 H, Hct 49.0, MCV 89.4, MCH 31.4, MCHC 35.1, RDW Std Deviation 41.0, RDW Coeff of [place] 12.5, Plt Count 209, MPV 8.4, Immature Gran % (Auto) 0.500, Neut % (Auto) 51.8, Lymph % (Auto) 37.6, [place] % (Auto) 6.3, Eos % (Auto) 3.3, Baso % (Auto) 0.5, Absolute Neuts (auto) 3.2, Absolute Lymphs (auto) 2.28, Nucleated RBC % 0 05/21/20 12:30: Sodium 141, Potassium 3.9, Chloride 106, Carbon Dioxide 26.0, Anion Gap 9, BUN 12, Creatinine 0.96, Estim Creat Clear Calc 111.15, Est GFR (MDRD) Af Amer 111, Est GFR (MDRD) Non-Af 92, BUN/Creatinine Ratio 12.5, Glucose 107 H, Calcium 8.9, Total Bilirubin 0.60, AST 36, ALT 41, Alkaline Phosphatase 80, Total Protein 8.2, Albumin 4.3, Globulin 3.9, Albumin/Globulin Ratio 1.1 05/21/20 12:30: Ethyl Alcohol 318.0 H* 05/21/20 12:37: Urine Opiates Screen NEGATIVE, Urine Methadone Screen NEGATIVE, Ur Barbiturates Screen NEGATIVE, Ur Phencyclidine Scrn NEGATIVE, Ur Amphetamines Screen NEGATIVE, U Methamphetamin-MDMA NEGATIVE, U Benzodiazepines Scrn NEGATIVE, Urine Cocaine Screen NEGATIVE, U Cannabinoids Screen NEGATIVE, Ur Drug Screen Comment Current Medications Al Hydroxide/Mg Hydroxide (Mag Hydrox/Al Hydrox/Simeth 30 Ml Udc) 30 ml PO Q6H PRN PRN PRN Reason: Gastric Burning Albuterol Sulfate (Albuterol 2.5 Mg/3 Ml Vial.Neb.) 2.5 mg INHALATION Q2H PRN PRN PRN Reason: Shortness of Breath/Wheezing Dicyclomine HCl (Dicyclomine 10 Mg Capsule) 20 mg PO Q6H PRN PRN PRN Reason: abdominal discomfort Folic Acid (Folic Acid 1 Mg Tablet) 1 mg PO DAILY@0800 [facility] Last Admin: 05/22/20 08:30 Dose: 1 mg Documented by: Gabapentin (Gabapentin 300 Mg Capsule) 300 mg PO Q8H PRN PRN PRN Reason: moderate to severe anxiety Last Admin: 05/22/20 02:53 Dose: 300 mg Documented by: Hydroxyzine Pamoate (Hydroxyzine Sol 25 Mg Capsule) 50 mg PO Q4H PRN PRN PRN Reason: mild anxiety Last Admin: 05/22/20 06:42 Dose: 50 mg Documented by: Loperamide HCl (Loperamide 2 Mg Capsule) 2 mg PO Q4H PRN PRN PRN Reason: LOOSE STOOLS Last Admin: 05/22/20 11:47 Dose: 2 mg Documented by: Lorazepam (Lorazepam 1 Mg Tablet) 2 mg PO Q2H PRN PRN; Protocol PRN Reason: CIWA score > 8 but <15 Last Admin: 05/21/20 22:48 Dose: 2 mg Documented by: Lorazepam (Lorazepam 1 Mg Tablet) 2 mg PO UD PRN; Protocol PRN Reason: CIWA score >/=15. Melatonin (Melatonin 3 Mg Tablet) 3 mg PO QHS PRN PRN PRN Reason: INSOMNIA Multivitamins/Minerals (Multivitamins,Ther W-Minerals Tablet) [facility] Last Admin: 05/22/20 08:30 Dose: 1 tablet Documented by: Nicotine Polacrilex (Nicotine Polacrilex 4 Mg Gum) 4 mg PO Q2H PRN PRN PRN Reason: withdrawal Last Admin: 05/22/20 11:45 Dose: 4 mg Documented by: Ondansetron HCl (Ondansetron 8 Mg Tablet) 8 mg PO Q8H PRN PRN PRN Reason: NAUSEA Phenobarbital (Phenobarbital 32.4 Mg Tablet) 97.2 mg PO Q4H BREANN; Taper Stop: 05/25/20 22:59 Last Admin: 05/22/20 10:56 Dose: 97.2 mg Documented by: Sodium Chloride (0.9% Saline Lock 10 Ml Syringe) 10 - 40 ml IV UD PRN PRN Reason: SALINE FLUSH Last Admin: 05/22/20 02:55 Dose: 10 ml Documented by: Thiamine HCl (Thiamine Hydrochloride 100 Mg Tablet) [facility] Stop: 05/25/20 08:01 Last Admin: 05/22/20 08:30 Dose: 200 mg Documented by: Trazodone HCl (Trazodone 100 Mg Tablet) 100 mg PO QHS PRN PRN Reason: INSOMNIA Last Admin: 05/21/20 22:48 Dose: 100 mg Documented by: STROKE Vital Signs/Narrative: Vital Signs Temp Pulse Resp BP Pulse Ox 05/22/20 10:54 98.4 F 100 18 151/91 H 95 05/22/20 08:24 98.0 F 75 16 132/84 H 96 Medical Necessity - Tobacco Use Smoking Status: Current every day smoker Tobacco Use: Chew Assessment/Plan All Active Problems Alcohol withdrawal (Acute) Acute alcohol withdrawal -Phenobarb taper -As needed Ativan -Thiamine/folate -Supportive medications -180 and see the patient today and the plan is for him to follow-up as an outpatient after he completed his detox as well as following with the counseling center and other community resources for alcohol addiction were made available to the patient Erythrocytosis -Suspect mild dehydration -Repeat CBC is pending -Patient is status post 1 L IV fluids Alcohol abuse-chronic -See above Tobacco abuse -Patient uses chewing tobacco -Nicotine replacement ordered DVT prophylaxis -Early ambulation CODE STATUS -Full code Inpatient E&M: 45724 Subs Hosp L2
[2020-05-22 13:09] LABS: Absolute Lymphocyte Count 1.38 X10^3/uL (0.83-4.51); Absolute Neutrophil Count 5.3 X10^3/uL (2.0-7.7); Basophil# 0.03 X10^3/uL; Basophil% 0.4 % (0-1); Eosinophil# 0.26 X10^3/uL; Eosinophils% 3.4 % (0-5); Hematocrit 44.7 % (40-54); Hemoglobin 15.3 g/dL (13.0-16.5); Lymphocyte # 1.38 X10^3/ul (4.0); Lymphocyte % 18.3 % (19-41); Mean Corp Hgb Conc 34.2 g/dL (32-36); Mean Corpuscular Hgb 30.8 pg (27.0-32.0); Mean Corpuscular Volume 90.1 fL (80-94); Mean Platelet Vol. 8.1 fl (6.2-12.0); Monocyte# 0.51 X10^3/uL; Monocyte% 6.8 % (0-10); NRBC Flagged by Analyzer 0 % (0-5); Neutrophil # 5.34 X10^3/uL (2.7-7.7); Neutrophil % 70.7 % (47-70); Platelet Count 157 K/mm3 (150-450); RBC Distribution Width CV 12.6 % (11.6-14.6); RBC Distribution Width SD 41.1 fl (35.1-43.9); Red Blood Count 4.96 M/mm3 (4.6-6.2); White Blood Count 7.6 K/mm3 (4.4-11.0)
--- NOTE | 2020-05-22 14:48 | CHAPLAIN ---
Type of Pastoral Visit _x__ Initial Visit ___ Follow-up Visit ___ On-call Visit ___ General Patient Visit ___ Spiritual Assessment ___ Family Conference ___ Bereavement ___ Rapid Response ___ Code Blue ___ Other (describe below) Pastoral Care Referral From _x__ Patient ___ Family ___ Nurse ___ Physician ___ Customs Port Director ___ Pattern Grader Supervisor ___ Other (describe below) Sacrament/Intervention _x__ Active listening ___ Anointing ___ Restorationist ___ Bereavement ___ Communion _x__ Terri exploration ___ _x__ Life review _x__ Prayer ___ Reconciliation ___ Sacrament of Sick _x__ Supportive presence ___ Wedding ___ Other (describe below) Pastoral Comments patient also requested a Bible and one was given to him; long review of life history and current situation that he describes as not sure what is next; pt states he actively attends a orthodoxy with his girlfriend and that he is Evangelical;
[2020-05-22 14:51] VITALS: BP 147/97; PULSE 96; RESP 18; TEMP 36.4; O2SAT 99
[2020-05-22] MEDS: LORazepam 2 MG/ML Syringe IV (15:15)
[2020-05-22 17:08] VITALS: BP 136/88; PULSE 86; RESP 16; TEMP 36.7; O2SAT 98
[2020-05-22] MEDS: Ibuprofen 600 MG Tablet PO ×2 (18:22→23:17)
[2020-05-22 21:37] VITALS: BP 138/92; PULSE 73; RESP 16; TEMP 36.6; O2SAT 100
[2020-05-22] MEDS: traZODone 100 MG Tablet PO (21:54)
[2020-05-23 03:10] VITALS: BP 124/87; PULSE 73; RESP 16; TEMP 36.4; O2SAT 98
[2020-05-23] MEDS: Phenobarbital 32.4 MG Tablet 64.8 MG PO ×6 (03:15→22:07)
[2020-05-23] MEDS: hydrOXYzine PAM 25 MG Capsule 50 MG PO ×4 (03:17→22:39)
[2020-05-23] MEDS: Ibuprofen 600 MG Tablet PO ×4 (06:12→22:11)
[2020-05-23 10:10] VITALS: BP 146/99; PULSE 90; RESP 16; TEMP 36.6; O2SAT 98
[2020-05-23] MEDS: Folic Acid 1 MG Tablet PO (10:16)
[2020-05-23] MEDS: Multivitamins,Ther W-Minerals Tablet 1 TABLET PO (10:16)
[2020-05-23] MEDS: Thiamine Hydrochloride 100 MG Tablet 200 MG PO (10:16)
[2020-05-23] MEDS: Gabapentin 300 MG Capsule PO ×2 (10:24→18:26)
--- NOTE | 2020-05-23 10:42 | PN_ITS ---
Patient Problems: Active and Suspected Problems Alcohol withdrawal (Acute) Subjective: Patient states he is overall feeling well, although, he is anxious to go home soon. No current signs of withdrawal. States his back pain has improved some but is still present. Vitals/I&O's: Vital Signs Temp Pulse Resp BP Pulse Ox 97.9 F 90 16 146/99 H 98 05/23/20 10:10 05/23/20 10:10 05/23/20 10:10 05/23/20 10:10 05/23/20 10:10 Oxygen Delivery Method Room Air Weight: 91 kg Body Mass Index (BMI) 27.1 Intake and Output for Last 24 Hours 05/21/20 05/22/20 05/23/20 23:59 23:59 23:59 Intake Total 3500 / 3500 800 / 800 Balance 3500 / 3500 800 / 800 General: Alert, Oriented x3, Cooperative, No apparent distress, Well developed, Well nourished, - - Middle-aged white male sitting up in bed watching TV, appears comfortable HEENT: Atraumatic, Normocephalic Oral: Moist Mucosa Neck: Supple, Trachea Midline Lungs: Clear to auscultation, Normal air movement, No rhonchi, No wheeze, No rales Cardiovascular: Regular rate, Regular Rhythm, Normal S1, Normal S2, No murmurs, No Ectopic Activity, No rub noted, No Gallop Abdomen: Bowel Sounds Present, Soft, Non Tender, Non-Distended Extremities: No clubbing, No cyanosis, No edema, Capillary Refill Less than 3 Seconds, Peripheral Pulses Normal Neurological: Cranial nerves II-XII grossly intact, Neuro grossly intact Psych/Mental Status: Normal Affect, Appropriate, - - Very pleasant Laboratory Results 05/22/20 13:01: WBC 7.6, RBC 4.96, Hgb 15.3, Hct 44.7, MCV 90.1, MCH 30.8, MCHC 34.2, RDW Std Deviation 41.1, RDW Coeff of [place] 12.6, Plt Count 157, MPV 8.1, Immature Gran % (Auto) 0.400, Neut % (Auto) 70.7 H, Lymph % (Auto) 18.3 L, [place] % (Auto) 6.8, Eos % (Auto) 3.4, Baso % (Auto) 0.4, Absolute Neuts (auto) 5.3, Absolute Lymphs (auto) 1.38, Nucleated RBC % 0 Current Medications Al Hydroxide/Mg Hydroxide (Mag Hydrox/Al Hydrox/Simeth 30 Ml Udc) 30 ml PO Q6H PRN PRN PRN Reason: Gastric Burning Albuterol Sulfate (Albuterol 2.5 Mg/3 Ml Vial.Neb.) 2.5 mg INHALATION Q2H PRN PRN PRN Reason: Shortness of Breath/Wheezing Dicyclomine HCl (Dicyclomine 10 Mg Capsule) 20 mg PO Q6H PRN PRN PRN Reason: abdominal discomfort Folic Acid (Folic Acid 1 Mg Tablet) 1 mg PO DAILY@0800 [facility] Last Admin: 05/23/20 10:16 Dose: 1 mg Documented by: Gabapentin (Gabapentin 300 Mg Capsule) 300 mg PO Q8H PRN PRN PRN Reason: moderate to severe anxiety Last Admin: 05/23/20 10:24 Dose: 300 mg Documented by: Hydroxyzine Pamoate (Hydroxyzine Sol 25 Mg Capsule) 50 mg PO Q4H PRN PRN PRN Reason: mild anxiety Last Admin: 05/23/20 10:24 Dose: 50 mg Documented by: Ibuprofen (Ibuprofen 600 Mg Tablet) 600 mg PO Q6 BREANN Last Admin: 05/23/20 06:12 Dose: 600 mg Documented by: Loperamide HCl (Loperamide 2 Mg Capsule) 2 mg PO Q4H PRN PRN PRN Reason: LOOSE STOOLS Last Admin: 05/22/20 18:25 Dose: 2 mg Documented by: Lorazepam (Lorazepam 1 Mg Tablet) 2 mg PO Q2H PRN PRN; Protocol PRN Reason: CIWA score > 8 but <15 Last Admin: 05/21/20 22:48 Dose: 2 mg Documented by: Lorazepam (Lorazepam 1 Mg Tablet) 2 mg PO UD PRN; Protocol PRN Reason: CIWA score >/=15. Lorazepam (Lorazepam 2 Mg/Ml Syringe) 2 mg IV Q2H PRN PRN; Protocol PRN Reason: CIWA score > 8 but <15 Last Admin: 05/22/20 15:15 Dose: 2 mg Documented by: Melatonin (Melatonin 3 Mg Tablet) 3 mg PO QHS PRN PRN PRN Reason: INSOMNIA Multivitamins/Minerals (Multivitamins,Ther W-Minerals Tablet) [facility] Last Admin: 05/23/20 10:16 Dose: 1 tablet Documented by: Nicotine Polacrilex (Nicotine Polacrilex 4 Mg Gum) 4 mg PO Q2H PRN PRN PRN Reason: withdrawal Last Admin: 05/22/20 11:45 Dose: 4 mg Documented by: Ondansetron HCl (Ondansetron 8 Mg Tablet) 8 mg PO Q8H PRN PRN PRN Reason: NAUSEA Phenobarbital (Phenobarbital 32.4 Mg Tablet) 64.8 mg PO Q4H BREANN; Taper Stop: 05/25/20 22:59 Last Admin: 05/23/20 06:13 Dose: 64.8 mg Documented by: Sodium Chloride (0.9% Saline Lock 10 Ml Syringe) 10 - 40 ml IV UD PRN PRN Reason: SALINE FLUSH Last Admin: 05/22/20 15:15 Dose: 10 ml Documented by: Thiamine HCl (Thiamine Hydrochloride 100 Mg Tablet) 200 mg [facility] Stop: 05/25/20 08:01 Last Admin: 05/23/20 10:16 Dose: 200 mg Documented by: Trazodone HCl (Trazodone 100 Mg Tablet) 100 mg PO QHS PRN PRN Reason: INSOMNIA Last Admin: 05/22/20 21:54 Dose: 100 mg Documented by: STROKE Vital Signs/Narrative: Vital Signs Temp Pulse Resp BP Pulse Ox 05/23/20 10:10 97.9 F 90 16 146/99 H 98 Medical Necessity - Tobacco Use Smoking Status: Current every day smoker Tobacco Use: Chew Assessment/Plan All Active Problems Alcohol withdrawal (Acute) Acute alcohol withdrawal -Phenobarb taper now down to 64.8 mg every 4 hours scheduled -As needed Ativan--> patient has not required any doses -Continue thiamine/folate -Supportive medications -180 has seen the patient and the plan is for him to follow-up with the counseling center for psychiatry and counseling services and he was given contact information for alcohol support agencies in the area Erythrocytosis -Resolved -Suspect related to hemoconcentration Intermittent blood pressure elevation -Continue to monitor -If remains elevated may need to add low-dose antihypertensive Alcohol abuse-chronic -See above Tobacco abuse -Patient uses chewing tobacco -Nicotine replacement ordered DVT prophylaxis -Early ambulation CODE STATUS -Full code Inpatient E&M: 38337 Subs Hosp L2
--- NOTE | 2020-05-23 11:30 | RAD_ITS ---
HISTORY: pain COMPARISON: None FINDINGS: # of images incl. paperwork: 2 XR Spine Lumbar 2 or 3 Views: Lumbar vertebral bodies are normal in height. Lumbar disc spaces are well maintained. No acute lumbar spine fracture or subluxation. No significant degenerative change. RAD/Lumbar Spine 2 or 3 Views IMPRESSION: No acute lumbar spine fracture or subluxation. at 0703 Reported and signed by: Surinder Hebert MD Electronically Signed: Surinder Hebert MD at 7:02 EDT Tel , Service support ,
[2020-05-23 14:55] VITALS: BP 147/89; PULSE 92; RESP 18; TEMP 36.7; O2SAT 97
[2020-05-23] MEDS: LORazepam 1 MG Tablet 2 MG PO (15:19)
[2020-05-23 18:22] VITALS: BP 144/77; PULSE 96; RESP 18; TEMP 36.7; O2SAT 96
[2020-05-23 21:51] VITALS: BP 152/88; PULSE 83; RESP 17; TEMP 37.1; O2SAT 99
[2020-05-23] MEDS: traZODone 100 MG Tablet PO (21:54)
[2020-05-24 02:50] VITALS: BP 114/84; PULSE 69; RESP 16; TEMP 36.4; O2SAT 98
[2020-05-24] MEDS: Gabapentin 300 MG Capsule PO (02:52)
[2020-05-24] MEDS: hydrOXYzine PAM 25 MG Capsule 50 MG PO (06:20)
[2020-05-24] MEDS: Ibuprofen 600 MG Tablet PO (06:20)
[2020-05-24] MEDS: Phenobarbital 32.4 MG Tablet 64.8 MG PO (06:20)
--- NOTE | 2020-05-24 07:06 | DCINST_ITS ---
- Discharge Diagnoses Current Active Problems: Current Active and Chronic Problems Alcohol withdrawal (Acute) Alcohol abuse (Chronic) Erythrocytosis (Chronic) Tobacco chew use (Chronic) You will use the following diet at home:: No restrictions Your food should be the consistency of: Regular Discharge Activity: Return to Normal Activity, No Restrictions Allergies/Adverse Reactions: Allergies No Known Allergies Allergy (Verified 05/21/20 11:56) Medications to take at Discharge hydrOXYzine pamoate capsule [Vistaril pamoate capsule] 25 mg PO TID PRN PRN #20 cap 03/28/20 Primary Care Physician: Care Physician,No Primary [Primary Care Provider] - Test Results: Test results from this visit will be discussed in further detail at your follow- up appointment, if applicable. Please Follow Up With: Counseling center Please Follow Up With: Alcohol addiction resources
[2020-05-24 08:35] VITALS: BP 134/96; PULSE 82; RESP 16; TEMP 36.6; O2SAT 100
[2020-05-24 08:37] VITALS: PULSE 82; O2SAT 100
[2020-05-24] MEDS: Thiamine Hydrochloride 100 MG Tablet 200 MG PO (08:51)
[2020-05-24] MEDS: Multivitamins,Ther W-Minerals Tablet 1 TABLET PO (08:51)
[2020-05-24] MEDS: Folic Acid 1 MG Tablet PO (08:51)
--- NOTE | 2020-05-24 09:22 | DS.PCM_ITS ---
Discharge Date and Diagnosis - Problem List Patient Problems: Active and Suspected Problems Alcohol withdrawal (Acute) Date of Admission: 05/21/20 Date of Discharge: 05/24/20 - Primary Discharge Diagnosis Acute Problems: Active Problems Alcohol withdrawal (Acute) - Secondary Discharge Diagnosis Chronic Problems: Chronic Problems Alcohol abuse (Chronic) Erythrocytosis (Chronic) Tobacco chew use (Chronic) Hospital Course and Treatment Operations: None Procedures: None Summary of Care Provided: Mr. Rizzo is a 40 year old WM with a past medical history of alcohol abuse chewing tobacco abuse presented to the emergency department [facility] on 05/21/2020 requesting acute alcohol detox. He reported he fell off the wagon since [facility] [employer], but reported that he had not been drinking much prior to that. He estimated that he was drinking at least 1/5 a day but probably more and drinks any alcohol he can possibly get his hands on. He presented to the emergency department on 05/20/2020 but did not feel he could go without his cell phone or was chewing tobacco so he left, but this time he felt he is ready to go through the detox program. He had never been through detox program in the past. He denied any illicit drug use and has no other medical i ssues. He reported that he felt that he is starting to withdrawal and that his last drink was approximately 1 hour and a half prior to presentation. His vital signs in the emergency department showed that he is afebrile, mildly tachycardic with a heart rate of 105, hypertensive with a blood pressure of 140/93, his respiratory rate is 16 and his oxygen saturations are 96 on room air. His labs were overall unremarkable and his tox screen is positive only for alcohol with a blood alcohol level of 318. He was be admitted to [facility] [place] [place] for alcohol detox. He was detoxed with phenobarbital taper and did very well overall. He did complain of some low back pain during his hospitalization which actually seem to be more at the SI joint on the right. A lumbar spine x-ray was performed and was negative for any acute issues nor did it show any signs of degenerative disc disease or arthritis. He met with Priya and his overall plan is to meet with his counselor as an outpatient which she has been established in the past. Resources of local alcohol abstinence support groups were also given to the patient by 180 liaison as well. He was given a prescription for hydroxyzine for 1 month at discharge and was instructed to follow-up with his primary care physician if his back pain persisted for more than 7 to 10 days. Discharge diagnoses Acute alcohol withdrawal Erythrocytosis-resolved Alcohol abuse Low back pain Tobacco abuse Sign Patient Problems: Active and Suspected Problems Alcohol withdrawal (Acute) Subjective: Patient states he is feeling fairly well. Still complaining of some right-sided low back pain that seems to be more localized to the right sacroiliac region. He is anxious to go home today. He denies any signs of withdrawal. - Physical Exam Vitals/I&O's: Vital Signs Temp Pulse Resp BP Pulse Ox 97.9 F 82 16 134/96 H 100 05/24/20 08:35 05/24/20 08:37 05/24/20 08:35 05/24/20 08:35 05/24/20 08:37 Oxygen Delivery Method Room Air Weight: 91 kg Body Mass Index (BMI) 27.1 Intake and Output for Last 24 Hours 05/22/20 05/23/20 05/24/20 23:59 23:59 23:59 Intake Total 3500 / 3500 2880 / 2880 450 / 450 Balance 3500 / 3500 2880 / 2880 450 / 450 General: Alert, Oriented x3, Cooperative, No apparent distress, Well developed, Well nourished, - - Very pleasant middle-aged male, appears well, no signs of acute alcohol withdrawal at this time, very cooperative HEENT: Atraumatic, PERRLA, EOMI, Normocephalic, EAC Clear Oral: Moist Mucosa Neck: Supple, Trachea Midline Lungs: Clear to auscultation, Normal air movement, No rhonchi, No wheeze, No rales Cardiovascular: Regular rate, Regular Rhythm, Normal S1, Normal S2, No murmurs, No Ectopic Activity, No rub noted, No Gallop Abdomen: Bowel Sounds Present, Soft, Non Tender, Non-Distended Extremities: No clubbing, No cyanosis, No edema, Capillary Refill Less than 3 Seconds, Peripheral Pulses Normal Neurological: Cranial nerves II-XII grossly intact, Neuro grossly intact Psych/Mental Status: Normal Affect, Appropriate Discharge Activity: Return to Normal Activity, No Restrictions Home Medications: Medications to take at Discharge hydrOXYzine pamoate capsule [Vistaril pamoate capsule] 25 mg PO TID PRN PRN #90 cap 03/26/21 Following Prescriptions Were Given to Patient: hydrOXYzine pamoate capsule [Vistaril pamoate capsule] 25 mg PO TID PRN PRN #90 cap PRN Reason: Anxiety Primary Care Physician: Care Physician,No Primary [Primary Care Provider] - Please Follow Up With: Counseling center Please Follow Up With: Alcohol addiction resources Medical Necessity - Tobacco Use Smoking Status: Current every day smoker Tobacco Use: Chew Meaningful Use Info Meaningful Use Diagnoses (Choose all that apply): None applicable Inpatient E&M: 780[address] [facility]
== END 2020-05-24 09:05 | disposition home or self-care (01) | DRG 775 ==
LOC: ED 12:16 → MS3 13:10
PROVIDERS: Admitting Provider Internal Medicine; Emergency Provider Emergency Medicine; Visit Provider Internal Medicine
DX: F10.239 Alcohol dependence with withdrawal, unspecified (principal); Y90.8 Blood alcohol level of 240 mg/100 ml or more; F17.220 Nicotine dependence, chewing tobacco, uncomplicated; E86.0 Dehydration; D75.1 Secondary polycythemia; R03.0 Elevated blood-pressure reading, without diagnosis of hypertension; M54.5 Low back pain
CPT/HCPCS: 36415; 72100; 80053; 80307; 82077; 85025; 99251; 99281; 99282; 99284; 99406; J7120; A4216; G0463

== ENCOUNTER 2020-08-06 12:23 | Emergency (ER) | payer MEDICAID, SELFPAY ==
[2020-08-06 12:24] VITALS: BP 143/94; PULSE 105; RESP 16; TEMP 36.6; O2SAT 96; BMI 27.1
--- NOTE | 2020-08-06 12:54 | US_ITS ---
STUDY: SCROTUM ULTRASOUND REASON FOR EXAM: Male, 40 years old. Left testicular pain. TECHNIQUE: Ultrasound evaluation of the scrotum was performed with color Doppler and static hay-scale imaging. COMPARISON: None. FINDINGS: RIGHT TESTICLE INTRATESTICULAR: There is a normal size of the right testicle. The right testicle measures 5.3 cm x 3.3 cm x 2.8 cm. There is a homogenous echotexture. There is evidence of microlithiasis within the right testicle. There is normal arterial and normal venous vascularity. There is no demonstrated right testicular mass or cyst. EXTRATESTICULAR: The epididymis is normal in size. The epididymis head measures 0.9 cm x 1.1 cm x 1 cm. There is normal vascularity of the epididymis. There is no demonstrated epididymal cystic structure. There is no demonstrated hydrocele. There is no demonstrated varicocele. There is no demonstrated extratesticular mass or cyst. LEFT TESTICLE INTRATESTICULAR: There is a normal size of the left testicle. The left testicle measures 4.8 cm x 3.3 cm x 2.7 cm. There is a homogenous echotexture. Microlithiasis is seen within the testicle. There is normal arterial and normal venous vascularity. There is no demonstrated left testicular mass or cyst. EXTRATESTICULAR: The epididymis is normal in size. The epididymis head measures 0.9 cm x 1.1 cm x 0.9 cm. There is normal vascularity of the epididymis. There is no demonstrated epididymal cystic structure. There is no demonstrated hydrocele. There is no demonstrated varicocele. There is no demonstrated extratesticular mass or cyst. US/Testicular with Arterial Flow IMPRESSION: Normal bilateral testicles. There is evidence of microlithiasis within both testicles. Electronically Signed: Garrett Mcfadden MD at 14:42 EDT , Service support ,
[2020-08-06] MEDS: Morphine 4 MG/ML Syringe 8 MG IM (13:17)
--- NOTE | 2020-08-06 13:20 | ED.RN ---
PER MOM PTS GIRLFRIEND TOLD THE MOTHER THAT PT WAS SUICIDAL LAST NIGHT DUE TO LIFE SITUATIONS. PT WAS ASKED ABOUT THIS AND HE DENIED SI. PT ADVISED THAT MOM IS ON HER WAY IN. HE SAID OK
[2020-08-06 13:22] LABS: Bacteria 0 SEEN /hpf (None Seen); Mucous, Urine 0 SEEN /hpf (<or=2+); Red Blood Cells-Urine 0 SEEN /hpf (0-5); Squamous Epithelial Cells - UA 0 SEEN /hpf (0-5); White Blood Cells 0 SEEN /hpf (0-5)
[2020-08-06 13:24] LABS: Color, Urine Yellow (Yellow); Glucose, Dipstick Normal (Normal); Ketone-Dipstick Negative (Negative); Leukocyte Esterase-Dipstick Negative /ul (Negative); Nitrite-Dipstick Negative (Negative); Occult Blood-Urine Negative /ul (Negative); Protein-Dipstick Negative (Negative); Urine Bilirubin Dipstick Negative (Negative); Urine Clarity Clear (Clear); Urine Urobilinogen Normal (Normal)
--- NOTE | 2020-08-06 14:53 | ED.VIS.BACK ---
HPI History of Present Illness Chief Complaint: Back Informant: patient Narrative Narrative: Patient is a 40-year-old male with history of alcohol abuse presenting with back pain. Patient states he has had worsening back pain for the past 2 months. 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 Patient states that pain is worse in his left lower back and radiates down his leg. He states his leg feels weak. He has not taken anything for pain including Tylenol or ibuprofen. He notes for the past 2 days he has had left-sided testicular pain all the time. He denies any dysuria or discharge. He denies any fever. Denies any history of kidney stones. He states that he cannot sleep because of the pain. Patient denies any incontinence. Denies any saddle anesthesia. He notes that he has been drinking alcohol to try to leave the pain. This has been causing some strife at home and family is worried about his drinking. Patient was recently in alcohol detox at our hospital. Family was concerned that he had voiced suicidal ideations however on my evaluation and with nursing he is adamant that he does not have any homicidal suicidal thoughts. He notes that he is depressed because of his back pain but that is it. PFSH PFSH Medical History Anxiety Non-smoker Home Medications cyclobenzaprine 10 mg PO TID PRN #14 tab 08/06/20 [Rx Last Taken Unknown] ibuprofen 600 mg PO Q6H PRN PRN #20 tab 08/06/20 [Rx Last Taken Unknown] Allergy/AdvReac Type Severity Reaction Status Date / Time No Known Allergies Allergy Verified 08/06/20 12:25 Social History Smoking Status: Never smoker ROS ROS ED Constitutional Constitutional ED: Denies chills, fever(s) or malaise Eyes Eyes: Denies blurry vision or loss of vision ENT ENT ED: Denies rhinorrhea or sore throat Cardiovascular Cardiovascular: Denies chest pain or dizziness Respiratory/Chest Respiratory/Chest: Denies cough or dyspnea Gastrointestinal Gastrointestinal: Denies abdominal pain, nausea or vomiting Genitourinary Genitourinary ED: Reports other Details: Testicular pain ; Denies dysuria or hematuria Musculoskeletal Musculoskeletal: Reports back pain; Denies arthralgias or myalgias Integumentary Denies rash or wounds Neurologic Neurologic: Denies focal weakness or headache(s) Psychiatric Psychiatric: Denies anxiety or behavioral changes EXAM Physical Exam Const Vital Signs: 08/06/20 12:24 Temperature 98 F Temperature Source Temporal Pulse Rate 105 H Respiratory Rate 16 Blood Pressure 143/94 H Blood Pressure Mean 110 Pulse Ox 96 Oxygen Delivery Method Room Air Positive well nourished, well developed and no apparent distress General Appearance ED: well developed HEENT Reports normocephalic and moist mucous membranes atraumatic Nose: no nasal discharge General Ear: hearing grossly impaired External Ear: external ears normal Mouth ED: Yes moist mucous membranes abnormal Mouth: moist mucous membranes abnormal Eyes PERRL and EOMs intact bilaterally Neck full ROM, no lymphadenopathy, supple, no meningeal signs and no JVD Chest Wall inspection of chest normal Resp normal respiratory effort, normal air movement and clear to auscultation bilaterally Cardio regular rate and regular rhythm GI normal to inspection, nondistended, normoactive bowel sounds external exam normal, testes normal, scrotum normal, no scrotal swelling and no hernias present Narrative: No tenderness. Normal lie. Normal cremasteric reflex bilaterally. Back/Spine normal to inspection General Back: Negative for CVA tenderness Thoracic Spine / Upper Back: paraspinal muscle tenderness Lumbar Spine / Lower Back: straight leg raise positive - left Extremity normal to inspection and full ROM General Extremety ED: Negative for edema or tenderness General Extremity: Negative for edema Neuro oriented x3, no focal motor deficits and no sensory deficits noted Motor Exam: strength 5/5 throughout Deep Tendon Reflexes: Rt Patellar (L4): 2+ and Lt Patellar (L4): 2+ Deep Tendon Reflexes Back: Rt Patellar (L4): 2+ and Lt Patellar (L4): 2+ Plantar Reflex: Downgoing: bilateral Psych mental status grossly normal and thought process normal Mood & Affect: Negative for depressed or tearful Skin no rashes or lesions noted and no wounds MDM MDM MDM Narrative Medical decision making narrative: Patient evaluated for 2 months of worsening back pain. He notes the past 2 days has had associated testicular pain. This might be referred pain however will perform an ultrasound and UA to rule out torsion. Urinalysis is not consistent with infection or kidney stone. Testicular ultrasound shows incidental microlithiasis of both testicles but no acute process. Patient is given morphine in the ER. I use a dose with Motrin and Flexeril. He states this is taken the edge off his pain. Patient states he has a primary care doctor but cannot recall the name at this moment. Patient be discharged home to follow-up with his PCP for his back pain. At this time he does not have findings concerning for cauda equina syndrome I do not think he needs an emergent MRI. Do not think imaging is indicated. Patient be discharged home with a course of Flexeril. I did discuss his alcohol use and offered him detox however he declined at this time. Patient is counseled on signs and symptoms requiring return to the emergency room. Patient verbalizes agreement and understand this plan. Patient discharged home in stable and improved condition. Lab Data Labs: Laboratory Results - last 24 hr 08/06/20 13:16 Urine Color Yellow Urine Clarity Clear Urine pH 7.0 Ur Specific [place] 1.010 Urine Protein Negative Urine Glucose (UA) Normal Urine Ketones Negative Urine Occult Blood Negative Urine Nitrite Negative Urine Bilirubin Negative Urine Urobilinogen Normal Ur Leukocyte Esterase Negative Urine RBC 0 SEEN Urine WBC 0 SEEN Ur Squamous Epith Cells 0 SEEN Urine Bacteria 0 SEEN Urine Mucus 0 SEEN Radiography Diagnostic Testing: Radiology Impression Testicular Ultrasound 08/06/20 12:54 IMPRESSION: Normal bilateral testicles. There is evidence of microlithiasis within both testicles. Electronically Signed: Garrett Mcfadden MD at 14:42 EDT , Service support , Discharge Plan Triage Chief Complaint: Back ED Provider: Mita Mcwilliams Dx/Rx/DC Orders Clinical Impression: Acute low back pain with sciatica Prescriptions: New cyclobenzaprine 10 mg tablet 10 mg PO TID PRN (Reason: muscle spasm) Qty: 14 RF: 0 ibuprofen 600 mg tablet 600 mg PO Q6H PRN PRN (Reason: Pain Score 1-10/10) Qty: 20 RF: 0 Primary Care Provider: Care Physician,No Primary Referrals: Nacho Olsen MD [STAFF PHYSICIAN] - Care Physician,No Primary [Primary Care Provider] - Disposition Disposition: Home, self care
[2020-08-06] MEDS: cycloBENZAPRine HCl 10 MG Tablet PO (15:17)
[2020-08-06] MEDS: Ibuprofen 600 MG Tablet PO (15:17)
[2020-08-06 15:42] VITALS: BP 137/83; RESP 16; O2SAT 100
== END 2020-08-06 15:49 | disposition home or self-care (01) ==
PROVIDERS: Emergency Provider Emergency Medicine
DX: M54.42 Lumbago with sciatica, left side (principal); F41.9 Anxiety disorder, unspecified; Z79.899 Other long term (current) drug therapy
CPT/HCPCS: 76870; 81001; 93976; 96372; 99283

== ENCOUNTER 2020-08-08 20:07 | Emergency (ER) | payer MEDICAID, SELFPAY ==
[2020-08-08 20:08] VITALS: BP 129/92; PULSE 94; RESP 16; TEMP 36.2; O2SAT 96; BMI 27.1
--- NOTE | 2020-08-08 20:36 | EDS_ITS ---
HPI History of Present Illness Chief Complaint: Back Narrative Narrative: Patient complains of left paralumbar back pain that occurred few days ago he was basically lifting at work he has no other complaints no numbness 6 paresthesias history of similar process in the past he has taken ov [id number] meds some improvement reports when he gets bad back pain he drinks alcohol he has not had any to drink today he drove himself here he does not appear intoxicated feels fine drive himself home and assures me he had nothing to drink for 24 hours or more PFSH PFSH Medical History Anxiety Non-smoker Home Medications cyclobenzaprine 10 mg PO TID PRN #14 tab 08/06/20 [Rx Last Taken Unknown] ibuprofen 600 mg PO Q6H PRN PRN #20 tab 08/06/20 [Rx Last Taken Unknown] Allergy/AdvReac Type Severity Reaction Status Date / Time No Known Allergies Allergy Verified 08/08/20 20:10 Social History Smoking Status: Never smoker ROS ROS ED Constitutional Constitutional ED: Reports subjective, sweats and other; Denies chills, fever(s) or weight loss Eyes Eyes: Denies blurry vision or change in vision ENT ENT ED: Denies ear pain Cardiovascular Cardiovascular: Denies chest pain or palpitations Respiratory/Chest Respiratory/Chest: Denies dyspnea Gastrointestinal Gastrointestinal: Denies abdominal pain, nausea or vomiting Genitourinary Genitourinary ED: Denies dysuria or hematuria Musculoskeletal Musculoskeletal: Denies arthralgias or myalgias Integumentary Reports rash; Denies abscess Neurologic Neurologic: Denies weakness Psychiatric Psychiatric: Denies anxiety or depression Endocrine Endocrinology: Denies polydipsia or polyuria Allergic/Immunologic Allergic/Immunologic ED: Denies urticaria EXAM Physical Exam Narrative Exam Narrative: Is a subjective discomfort to the low left paralumbar back musculature midline back is nontender he is able to stand and walk around without difficulty no numbness 6 or paresthesias, he is awake and alert no signs of intoxication Const Vital Signs: 08/08/20 20:08 Temperature 97.2 F L Temperature Source Temporal Pulse Rate 94 Respiratory Rate 16 Blood Pressure 129/92 H Blood Pressure Mean 104 Pulse Ox 96 Oxygen Delivery Method Room Air Positive well developed General Appearance ED: well developed HEENT Reports normocephalic Negative for trauma Eyes EOMs intact bilaterally Neck supple Chest Wall inspection of chest normal Resp normal respiratory effort Cardio regular rate GI non-tender and non-distended Back/Spine Back/Spine Narrative: unremarkable Extremity normal to inspection Neuro oriented x3 and CN's II-XII intact bilaterally Sensorium / Orientation: alert Psych mental status grossly normal Skin no rashes or lesions noted MDM MDM MDM Narrative Medical decision making narrative: I had a long conversation with him given the above he is treated with Toradol he continues out patient [id number] meds follow-up with outpatient providers he will consider alcohol detox and moderate his alcohol use Discharge Plan Triage Chief Complaint: Back ED Provider: Shelley Taylor Dx/Rx/DC Orders Clinical Impression: Back pain Instructions: ED Back Sprain/Strain Prescriptions: No Action cyclobenzaprine 10 mg tablet 10 mg PO TID PRN (Reason: muscle spasm) Qty: 14 RF: 0 ibuprofen 600 mg tablet 600 mg PO Q6H PRN PRN (Reason: Pain Score 1-10/10) Qty: 20 RF: 0 Primary Care Provider: Care Physician,No Primary Referrals: Care Physician,No Primary [Primary Care Provider] -
[2020-08-08] MEDS: Ketorolac 60 MG/2 ML Vial IM (20:50)
== END 2020-08-08 21:10 | disposition home or self-care (01) ==
LOC: ED 20:23
PROVIDERS: Emergency Provider Emergency Medicine
DX: M54.5 Low back pain (principal); F41.9 Anxiety disorder, unspecified; Z79.899 Other long term (current) drug therapy
CPT/HCPCS: 96372; 99282

== ENCOUNTER 2020-08-11 13:40 | Inpatient (IN) | payer MEDICAID, SELFPAY ==
[2020-08-11] VITALS (7 sets, daily range): BP systolic 124–145; BP diastolic 67–89; PULSE 101–118; RESP 16–19; TEMP 35.9–37.1; O2SAT 92–98; BMI 27.1; BMI 27.2
--- NOTE | 2020-08-11 13:57 | EKG12_ITS ---
Test Reason : GENERAL ILLNESS Blood Pressure : / mmHG Vent. Rate : 101 BPM Atrial Rate : 101 BPM P-R Int : 156 ms QRS Dur : 100 ms QT Int : 340 ms P-R-T Axes : 043 050 016 degrees QTc Int : 440 ms Sinus tachycardia Otherwise normal ECG Confirmed by DEVANTE PINO, KIM ([id number]), film editor TRISH SAHNI ([id number]) on 08/15/2020 9:45:29 AM Referred By: SHADE Confirmed By:KIM LOW MD
--- NOTE | 2020-08-11 13:58 | EDS_ITS ---
HPI History of Present Illness Chief Complaint: ETOH Intox Informant: patient Narrative Narrative: Patient is a 40-year-old male who presents to the emergency department for alcohol intoxication. He states that he has been drinking heavily over the past week. He is also been taking Flexeril with this as he is had low back pain. Patient is here to get help with his drinking. He has gone through detox before in the past. Last time he went through a program was 6 months ago. He has gone through alcohol withdrawal previously. He has been drinking this morning. States he drinks all types of alcohol. He is not able to quantify how much he is drank today. Patient still has the low back pain which is mostly in the left buttock. He denies any issues with moving his bowels or urinating. No fevers or chills. He has had some intermittent chest pain or shortness of breath. No abdominal pain or nausea/vomiting. Patient denies any issues with drug use. PFSH PFSH Medical History Anxiety Non-smoker Home Medications cyclobenzaprine 10 mg PO TID PRN #14 tab 08/06/20 [Rx Last Taken Unknown] ibuprofen 600 mg PO Q6H PRN PRN #20 tab 08/06/20 [Rx Last Taken Unknown] Allergy/AdvReac Type Severity Reaction Status Date / Time No Known Allergies Allergy Verified 08/08/20 20:10 Social History Smoking Status: Never smoker ROS ROS ED Constitutional Constitutional ED: Denies chills or fever(s) Eyes Eyes: Denies change in vision ENT ENT ED: Denies epistaxis or rhinorrhea Cardiovascular Cardiovascular: Reports chest pain; Denies palpitations Respiratory/Chest Respiratory/Chest: Reports dyspnea; Denies cough or dyspnea on exertion Gastrointestinal Gastrointestinal: Denies abdominal pain, diarrhea, nausea or vomiting Genitourinary Genitourinary ED: Denies dysuria, hematuria or urinary frequency Musculoskeletal Musculoskeletal: Denies neck pain Integumentary Denies rash Neurologic Neurologic: Denies dizziness, headache(s) or weakness EXAM Physical Exam Const Vital Signs: 08/11/20 13:41 08/11/20 14:18 Temperature 98.8 F Temperature Source Temporal Pulse Rate 118 H 101 H Respiratory Rate 16 19 H Blood Pressure 145/82 H Blood Pressure Mean 103 Pulse Ox 96 92 Oxygen Delivery Method Room Air Room Air Positive well nourished and well developed General Appearance ED: well developed and NAD HEENT Reports normocephalic, head/scalp atraumatic and moist mucous membranes Eyes PERRL and EOMs intact bilaterally Neck supple Resp normal respiratory effort and clear to auscultation bilaterally Auscultation: Negative for rales, rhonchi or wheezes Cardio regular rate, regular rhythm and no murmurs GI normal to inspection, nondistended, normoactive bowel sounds and non-tender Palpation: soft; Negative for guarding or rebound tenderness present Back/Spine no CVA tenderness Extremity normal to inspection General Extremety ED: Negative for edema or tenderness General Extremity: Negative for edema Neuro CN's II-XII intact bilaterally and no sensory deficits noted Sensorium / Orientation: alert Motor Exam: strength 5/5 throughout Psych mental status grossly normal Skin no rashes or lesions noted MDM MDM MDM Narrative Medical decision making narrative: Patient presents to the emergency department for alcohol tox occasion. He is requesting help with this. On arrival to the ED he is mildly tachycardic. He believes that he is dehydrated. He has been drinking today. Will check basic lab work and plan admission to the hospital for alcohol detoxification. Besides patient's elevated alcohol level no significant abnormality on lab work- up except for mild elevation of liver enzymes. Patient is still wanting to stay in the hospital for detox. He otherwise has been stable throughout ED stay. Lab Data Labs: Laboratory Results - last 24 hr 08/11/20 08/11/20 08/11/20 14:25 14:25 14:25 WBC 4.3 L RBC 5.32 Hgb 16.2 Hct 46.4 MCV 87.2 MCH 30.5 MCHC 34.9 RDW Std Deviation 40.6 RDW Coeff of [place] 12.7 Plt Count 173 MPV 8.6 Immature Gran % (Auto) 0.200 Neut % (Auto) 50.9 Lymph % (Auto) 38.4 [place] % (Auto) 6.5 Eos % (Auto) 3.5 Baso % (Auto) 0.5 Absolute Neuts (auto) 2.2 Absolute Lymphs (auto) 1.66 Nucleated RBC % 0 Sodium 141 Potassium 4.3 Chloride 106 Carbon Dioxide 25.0 Anion Gap 10 BUN 7 Creatinine 0.87 Estim Creat Clear Calc 122.64 Est GFR (MDRD) Af Amer 124 Est GFR (MDRD) Non-Af 102 BUN/Creatinine Ratio 8.0 L Glucose 135 H Calcium 8.8 Total Bilirubin 0.50 AST 83 H ALT 107 H Alkaline Phosphatase 93 Total Protein 7.9 Albumin 4.0 Globulin 3.9 Albumin/Globulin Ratio 1.0 Urine Opiates Screen Urine Methadone Screen Ur Barbiturates Screen Ur Phencyclidine Scrn Ur Amphetamines Screen U Methamphetamin-MDMA U Benzodiazepines Scrn Urine Cocaine Screen U Cannabinoids Screen Ur Drug Screen Comment Ethyl Alcohol 389.0 H* 08/11/20 14:53 WBC RBC Hgb Hct MCV MCH MCHC RDW Std Deviation RDW Coeff of [place] Plt Count MPV Immature Gran % (Auto) Neut % (Auto) Lymph % (Auto) [place] % (Auto) Eos % (Auto) Baso % (Auto) Absolute Neuts (auto) Absolute Lymphs (auto) Nucleated RBC % Sodium Potassium Chloride Carbon Dioxide Anion Gap BUN Creatinine Estim Creat Clear Calc Est GFR (MDRD) Af Amer Est GFR (MDRD) Non-Af BUN/Creatinine Ratio Glucose Calcium Total Bilirubin AST ALT Alkaline Phosphatase Total Protein Albumin Globulin Albumin/Globulin Ratio Urine Opiates Screen NEGATIVE Urine Methadone Screen NEGATIVE Ur Barbiturates Screen NEGATIVE Ur Phencyclidine Scrn NEGATIVE Ur Amphetamines Screen NEGATIVE U Methamphetamin-MDMA NEGATIVE U Benzodiazepines Scrn NEGATIVE Urine Cocaine Screen NEGATIVE U Cannabinoids Screen NEGATIVE Ur Drug Screen Comment Ethyl Alcohol EKG Initial EKG: Attestation: I personally reviewed and interpreted this EKG as follows: (Rate of 101 bpm in sinus tachycardia. Normal intervals. Normal axis. No significant ST elevations or depressions. [id number] pattern.) Discharge Plan Triage Chief Complaint: ETOH Intox ED Provider: Pedro Sheets Dx/Rx/DC Orders Primary Care Provider: Care Physician,No Primary
[2020-08-11] MEDS: 0.9% Normal Saline 1,000 ML 999 ML IV (14:29)
[2020-08-11 14:47] LABS: Absolute Lymphocyte Count 1.66 X10^3/uL (0.83-4.51); Absolute Neutrophil Count 2.2 X10^3/uL (2.0-7.7); Basophil# 0.02 X10^3/uL; Basophil% 0.5 % (0-1); Eosinophil# 0.15 X10^3/uL; Eosinophils% 3.5 % (0-5); Hematocrit 46.4 % (40-54); Hemoglobin 16.2 g/dL (13.0-16.5); Lymphocyte # 1.66 X10^3/ul (0.83-4.51); Lymphocyte % 38.4 % (19-41); Mean Corp Hgb Conc 34.9 g/dL (32-36); Mean Corpuscular Hgb 30.5 pg (27.0-32.0); Mean Corpuscular Volume 87.2 fL (80-94); Mean Platelet Vol. 8.6 fl (6.2-12.0); Monocyte# 0.28 X10^3/uL; Monocyte% 6.5 % (0-10); NRBC Flagged by Analyzer 0 % (0-5); Neutrophil % 50.9 % (47-70); Platelet Count 173 K/mm3 (150-450); RBC Distribution Width CV 12.7 % (11.6-14.6); RBC Distribution Width SD 40.6 fl (35.1-43.9); Red Blood Count 5.32 M/mm3 (4.6-6.2); White Blood Count 4.3 K/mm3 (4.4-11.0)
[2020-08-11 15:03] LABS: AST(SGOT) 83 U/L (15-37); Alanine Aminotransfer ALT/SGPT 107 U/L (16-61); Alkaline Phosphatase 93 U/L (45-117); Anion Gap 10 (5-15); BUN 7 mg/dL (7-18); Calcium,Total 8.8 mg/dL (8.5-10.1); Chloride 106 mmol/L (98-107); Creatinine, Serum 0.87 mg/dL (0.70-1.30); EST Glomerular Filtration Rate 102 mL/min (>60); Est Glom Filt Rate - Afr Amer 124 mL/min (>60); Estimated Creatinine Clearance 122.64 ml/min; Globulin 3.9 g/dL (2.2-4.2); Glucose 135 mg/dL (74-106); Potassium 4.3 mmol/L (3.5-5.1); Protein, Total 7.9 g/dL (6.4-8.2); Sodium Level 141 mmol/L (136-145)
--- NOTE | 2020-08-11 15:05 | NURSING ---
Call from lab, blood alcohol 389, dr perez made aware
[2020-08-11 15:16] LABS: Amphetamine Urine VISTA NEGATIVE (<1000 ng/mL); Barbiturate Urine VISTA NEGATIVE (< 200 ng/mL); Benzodiazepine Urine VISTA NEGATIVE (< 200 ng/mL); Cocaine Urine VISTA NEGATIVE (< 300 ng/mL); Ecstacy Urine VISTA NEGATIVE (< 500 ng/mL); Methadone Urine VISTA NEGATIVE (< 300 ng/mL); PCP Urine VISTA NEGATIVE (< 25 ng/mL); THC Urine VISTA NEGATIVE (< 50 ng/mL); Vista UDS pH Range 5
--- NOTE | 2020-08-11 16:51 | ED.RN ---
pt and mother aware that pt can NOT have his cell phone, clothing, or any personal items. that these items will be locked up. pt and mother aware that there will be no visitors, phone calls, outside food or beverage, etc. 2 silver necklaces were placed in a container and given to mother. pt pleasant and cooperative.
[2020-08-11] MEDS: Phenobarbital 32.4 MG Tablet 64.8 MG PO ×2 (17:26→21:37)
[2020-08-11] MEDS: Gabapentin 300 MG Capsule PO (17:26)
--- NOTE | 2020-08-11 17:54 | PCM.HP.STD ---
HPI - General General Date of Admission: 08/11/20 HPI Narrative Mr. Rizzo is a 40 year old WM with a past medical history of alcohol abuse and chewing tobacco abuse presented to the emergency department [facility] on 08/11/2020 requesting acute alcohol detox. He had a recent admission here in April and was doing okay but started having some back pain for which she sought care here. Unfortunately his back pain persisted and he states he started drinking again to manage his pain. His last drink was this morning. When asked how much he is drinking he says a lot. He had never been through detox program in the past prior to his last admission. He denies any illicit drug use and has no other medical issues. He states he is starting to have some withdrawal symptoms. He had been complaining of back pain when he was here at his last admission as well and an x-ray was performed and was negative for any acute issues. He will be admitted to [facility] for alcohol detox. His vital signs in the emergency department showed mild hypertension and tachycardia. His CBC was overall unremarkable. His CMP showed mild transaminitis related to his alcohol use. His tox screen was negative except he had an alcohol level of 389 on admission. [facility] Medical History Alcohol abuse Anxiety Back pain Non-smoker Home Medications cyclobenzaprine 10 mg PO TID PRN #14 tab 08/06/20 [Rx Last Taken 08/10/20] ibuprofen 600 mg PO Q6H PRN PRN #20 tab 08/06/20 [Rx Last Taken Unknown] Allergy/AdvReac Type Severity Reaction Status Date / Time No Known Allergies Allergy Verified 08/08/20 20:10 Social History household members: other housing: other number of children: 3 ([facility] also has girlfriend with 3 addition children) other: states lives with girlfriend at times and parents at times Smoking Status: Never smoker alcohol intake: current details: states went through Detox april 2020 but started binge drinking 1 week ago, ROS Review of Systems ROS Unobtainable: Denies due to encephalopathy, due to endotracheal tube, due to mental condition, due to mental status or other Constitutional Constitutional: Reports chills and malaise; Denies anorexia, change in weight, fatigue, fever(s), night sweats, weakness or other Eyes Eyes: Denies blurry vision, change in eye color, change in vision, discharge from eye(s), double vision, erythema, eye pain, loss of vision or other ENT HEENT: Denies abnormal hearing, dysphagia, ear pain, epistaxis, headache(s), hearing loss, nasal congestion, nasal discharge, post nasal drip, sinus pressure, sore throat or other Cardiovascular Cardiovascular: Reports rapid heart rate; Denies chest pain, claudication, dyspnea on exertion, edema, lightheadedness, orthopnea, palpitations, paroxysmal nocturnal dyspnea, syncope or other Respiratory/Chest Respiratory/Chest: Denies cough, dyspnea, excessive phlegm production, hemoptysis, productive cough, shortness of breath at rest, shortness of breath with exertion, wheezing or other Gastrointestinal Gastrointestinal: Reports nausea; Denies abdominal pain, coffee ground emesis, constipation, diarrhea, dyspepsia, hematemesis, hematochezia, loose stools, melena, vomiting or other Genitourinary Genitourinary: Denies burning urination, difficulty urinating, dysuria, hematuria, nocturia, urinary frequency, urinary hesitancy, urinary incontinence, urinary urgency or other Musculoskeletal Musculoskeletal: Reports back pain; Denies arthralgias, joint pain, joint stiffness, joint swelling, myalgias, neck pain or other Neurologic Neurologic: Denies abnormal gait, abnormal speech, confusion, disequilibrium, dizziness, focal weakness, headache(s), numbness, paresthesias, seizure-like activity, seizures, syncope, tingling, tremor(s) or other Psychiatric Psychiatric: Denies anxiety, depression, homicidal ideation, suicidal ideation or other Endocrine Endocrinology: Denies change in body appearance, cold intolerance, excessive sweating, heat intolerance, polydipsia, polyuria or other Hematologic/Lymphatic Hematologic/Lymphatic: Denies anemia, easy bleeding, easy bruising, lymphadenopathy or other Allergic/Immunologic Allergic/Immunologic: Denies rhinitis, hives, eczemia, asthma or other Vital Signs Vital Signs Vital Signs: 08/11/20 13:41 08/11/20 14:18 08/11/20 16:21 Temperature 98.8 F 96.7 F L Temperature Source Temporal Temporal Pulse Rate 118 H 101 H 116 H Respiratory Rate 16 19 H 16 Blood Pressure 145/82 H 129/78 H Blood Pressure Mean 103 95 Blood Pressure Source Blood Pressure Position Blood Pressure Location Pulse Ox 96 92 95 Oxygen Delivery Method Room Air Room Air Room Air 08/11/20 17:09 Temperature 97.8 F Temperature Source Oral Pulse Rate 111 H Respiratory Rate 18 Blood Pressure 139/89 H Blood Pressure Mean 105 Blood Pressure Source Monitor Blood Pressure Position Sitting Blood Pressure Location Left Arm Pulse Ox 98 Oxygen Delivery Method Room Air Weight Weight: 91.036 kg Body Mass Index (BMI) 27.2 Results Lab / Micro Data Attestation: I reviewed the patient's lab results. Result Diagrams: 08/11/20 14:25 08/11/20 14:25 Labs: Laboratory Results - last 24 hr 08/11/20 08/11/20 08/11/20 14:25 14:25 14:25 WBC 4.3 L RBC 5.32 Hgb 16.2 Hct 46.4 MCV 87.2 MCH 30.5 MCHC 34.9 RDW Std Deviation 40.6 RDW Coeff of Saranya 12.7 Plt Count 173 MPV 8.6 Immature Gran % (Auto) 0.200 Neut % (Auto) 50.9 Lymph % (Auto) 38.4 [place] % (Auto) 6.5 Eos % (Auto) 3.5 Baso % (Auto) 0.5 Absolute Neuts (auto) 2.2 Absolute Lymphs (auto) 1.66 Nucleated RBC % 0 Sodium 141 Potassium 4.3 Chloride 106 Carbon Dioxide 25.0 Anion Gap 10 BUN 7 Creatinine 0.87 Estim Creat Clear Calc 122.64 Est GFR (MDRD) Af Amer 124 Est GFR (MDRD) Non-Af 102 BUN/Creatinine Ratio 8.0 L Glucose 135 H Calcium 8.8 Total Bilirubin 0.50 AST 83 H ALT 107 H Alkaline Phosphatase 93 Total Protein 7.9 Albumin 4.0 Globulin 3.9 Albumin/Globulin Ratio 1.0 Urine Opiates Screen Urine Methadone Screen Ur Barbiturates Screen Ur Phencyclidine Scrn Ur Amphetamines Screen U Methamphetamin-MDMA U Benzodiazepines Scrn Urine Cocaine Screen U Cannabinoids Screen Ur Drug Screen Comment Ethyl Alcohol 389.0 H* 08/11/20 14:53 WBC RBC Hgb Hct MCV MCH MCHC RDW Std Deviation RDW Coeff of Saranya Plt Count MPV Immature Gran % (Auto) Neut % (Auto) Lymph % (Auto) [place] % (Auto) Eos % (Auto) Baso % (Auto) Absolute Neuts (auto) Absolute Lymphs (auto) Nucleated RBC % Sodium Potassium Chloride Carbon Dioxide Anion Gap BUN Creatinine Estim Creat Clear Calc Est GFR (MDRD) Af Amer Est GFR (MDRD) Non-Af BUN/Creatinine Ratio Glucose Calcium Total Bilirubin AST ALT Alkaline Phosphatase Total Protein Albumin Globulin Albumin/Globulin Ratio Urine Opiates Screen NEGATIVE Urine Methadone Screen NEGATIVE Ur Barbiturates Screen NEGATIVE Ur Phencyclidine Scrn NEGATIVE Ur Amphetamines Screen NEGATIVE U Methamphetamin-MDMA NEGATIVE U Benzodiazepines Scrn NEGATIVE Urine Cocaine Screen NEGATIVE U Cannabinoids Screen NEGATIVE Ur Drug Screen Comment Ethyl Alcohol Assessment & Plan Assessment/Plan (1) Alcohol withdrawal: (2) Alcohol abuse: (3) Tobacco chew use: (4) Back pain: PLAN: Acute alcohol withdrawal -Detox with phenobarb -Thiamine and folate -Supportive medications -180 consult Back pain -This has been problematic since his last admission -X-rays were performed at that time and was negative -We will continue Flexeril and Tylenol for now -Recommend outpatient follow-up -Check UA to rule out for signs of nephrolithiasis if positive for hematuria would consider CT of the abdomen and pelvis to rule out kidney stone Tobacco abuse -Patient chews tobacco -We will write for nicotine patch Chronic alcohol abuse -See above DVT prophylaxis -Early ambulation CODE STATUS -Full code Charges/Coding Visit Charges Inpatient E&M: 57544 Init Hosp L2
[2020-08-11] MEDS: cycloBENZAPRine HCl 10 MG Tablet PO (18:16)
[2020-08-11] MEDS: hydrOXYzine PAM 25 MG Capsule 50 MG PO (18:16)
[2020-08-11] MEDS: Ondansetron 8 MG Tablet PO (18:16)
[2020-08-12] VITALS (7 sets, daily range): BP systolic 126–147; BP diastolic 73–97; PULSE 79–103; RESP 16–18; TEMP 36.6–37.1; O2SAT 94–98
[2020-08-12] MEDS: LORazepam 2 MG/ML Syringe 1 MG IV ×2 (00:34→13:38)
[2020-08-12 01:07] LABS: Color, Urine Yellow (Yellow); Glucose, Dipstick Normal (Normal); Ketone-Dipstick 5 mg/dl (Negative); Leukocyte Esterase-Dipstick Negative /ul (Negative); Nitrite-Dipstick Negative (Negative); Occult Blood-Urine 10 /ul (Negative); Protein-Dipstick 15 mg/dl (Negative); Urine Bilirubin Dipstick Negative (Negative); Urine Clarity Clear (Clear); Urine Urobilinogen Normal (Normal)
[2020-08-12 01:08] LABS: Bacteria 0 SEEN /hpf (None Seen); Mucous, Urine 0 SEEN /hpf (<or=2+); Squamous Epithelial Cells - UA 0 SEEN /hpf (0-5); White Blood Cells 0 SEEN /hpf (0-5)
[2020-08-12 01:11] LABS: Red Blood Cells-Urine 0-5 SEEN /hpf (0-5)
[2020-08-12] MEDS: Phenobarbital 32.4 MG Tablet 64.8 MG PO ×6 (01:36→20:50)
[2020-08-12] MEDS: traZODone 100 MG Tablet PO ×2 (01:37→20:50)
[2020-08-12] MEDS: Folic Acid 1 MG Tablet PO (08:10)
[2020-08-12] MEDS: Thiamine Hydrochloride 100 MG Tablet PO (08:11)
--- NOTE | 2020-08-12 08:48 | CASEMGMT ---
JOSE called Shayy Miguel with [employer] to notify her of pt's admission, message left. MIRTA Alan
--- NOTE | 2020-08-12 10:30 | ADDICTION ---
This marketing copywriter met with PT to conduct ASAM, MSE, AUDIT assessments and to plan for d/c. PT A+Ox4. All assessments completed, faxed to [facility] and placed in PT's chart. PT to f/u with [facility] for ongoing counseling. No transportation needs identified.
--- NOTE | 2020-08-12 12:01 | PN.HOSP_ITS ---
Subjective Subjective Patient seen and examined. He had no complaints and felt well this morning. He denies any tremors or palpitations abdominal pain. Review of systems otherwise negative. He has remained hemodynamically stable. Objective Data Objective Data Vital Signs: Vital Signs Temp Pulse Resp BP Pulse Ox 98.5 F 90 16 128/87 H 98 08/12/20 09:56 08/12/20 10:00 08/12/20 09:56 08/12/20 09:56 08/12/20 09:56 Oxygen Delivery Method Room Air Weight: 200 lb 11.2 oz Body Mass Index (BMI) 27.2 Intake & Output: Intake and Output for Last 24 Hours 08/10/20 08/11/20 08/12/20 23:59 23:59 23:59 Intake Total 1500 / 1500 500 / 500 Balance 1500 / 1500 500 / 500 Lab / Micro Data Result Diagrams: 08/11/20 14:25 08/11/20 14:25 Labs: Laboratory Results - last 24 hr 08/11/20 08/11/20 08/11/20 14:25 14:25 14:25 WBC 4.3 L RBC 5.32 Hgb 16.2 Hct 46.4 MCV 87.2 MCH 30.5 MCHC 34.9 RDW Std Deviation 40.6 RDW Coeff of Saranya 12.7 Plt Count 173 MPV 8.6 Immature Gran % (Auto) 0.200 Neut % (Auto) 50.9 Lymph % (Auto) 38.4 [place] % (Auto) 6.5 Eos % (Auto) 3.5 Baso % (Auto) 0.5 Absolute Neuts (auto) 2.2 Absolute Lymphs (auto) 1.66 Nucleated RBC % 0 Sodium 141 Potassium 4.3 Chloride 106 Carbon Dioxide 25.0 Anion Gap 10 BUN 7 Creatinine 0.87 Estim Creat Clear Calc 122.64 Est GFR (MDRD) Af Amer 124 Est GFR (MDRD) Non-Af 102 BUN/Creatinine Ratio 8.0 L Glucose 135 H Calcium 8.8 Total Bilirubin 0.50 AST 83 H ALT 107 H Alkaline Phosphatase 93 Total Protein 7.9 Albumin 4.0 Globulin 3.9 Albumin/Globulin Ratio 1.0 Urine Color Urine Clarity Urine pH Ur Specific [place] Urine Protein Urine Glucose (UA) Urine Ketones Urine Occult Blood Urine Nitrite Urine Bilirubin Urine Urobilinogen Ur Leukocyte Esterase Urine RBC Urine WBC Ur Squamous Epith Cells Urine Bacteria Urine Mucus Urine Opiates Screen Urine Methadone Screen Ur Barbiturates Screen Ur Phencyclidine Scrn Ur Amphetamines Screen U Methamphetamin-MDMA U Benzodiazepines Scrn Urine Cocaine Screen U Cannabinoids Screen Ur Drug Screen Comment Ethyl Alcohol 389.0 H* 08/11/20 08/12/20 14:53 00:58 WBC RBC Hgb Hct MCV MCH MCHC RDW Std Deviation RDW Coeff of Saranya Plt Count MPV Immature Gran % (Auto) Neut % (Auto) Lymph % (Auto) [place] % (Auto) Eos % (Auto) Baso % (Auto) Absolute Neuts (auto) Absolute Lymphs (auto) Nucleated RBC % Sodium Potassium Chloride Carbon Dioxide Anion Gap BUN Creatinine Estim Creat Clear Calc Est GFR (MDRD) Af Amer Est GFR (MDRD) Non-Af BUN/Creatinine Ratio Glucose Calcium Total Bilirubin AST ALT Alkaline Phosphatase Total Protein Albumin Globulin Albumin/Globulin Ratio Urine Color Yellow Urine Clarity Clear Urine pH 5.0 Ur Specific [place] 1.020 Urine Protein 15 H Urine Glucose (UA) Normal Urine Ketones 5 H Urine Occult Blood 10 H Urine Nitrite Negative Urine Bilirubin Negative Urine Urobilinogen Normal Ur Leukocyte Esterase Negative Urine RBC 0-5 SEEN Urine WBC 0 SEEN Ur Squamous Epith Cells 0 SEEN Urine Bacteria 0 SEEN Urine Mucus 0 SEEN Urine Opiates Screen NEGATIVE Urine Methadone Screen NEGATIVE Ur Barbiturates Screen NEGATIVE Ur Phencyclidine Scrn NEGATIVE Ur Amphetamines Screen NEGATIVE U Methamphetamin-MDMA NEGATIVE U Benzodiazepines Scrn NEGATIVE Urine Cocaine Screen NEGATIVE U Cannabinoids Screen NEGATIVE Ur Drug Screen Comment Ethyl Alcohol Physical Exam Const alert, oriented x3 and no apparent distress Exam Limitations: no limitations HEENT head/scalp atraumatic, moist oral mucous membranes and oropharynx normal Head and Scalp: normocephalic Eyes PERRL, EOMs intact bilaterally and conjunctivae normal Neck no lymphadenopathy, supple and no JVD Resp normal respiratory effort, no retractions, no use of accessory muscles and clear to auscultation bilaterally Cardio regular rate, regular rhythm, S1 normal heart sound, S2 normal heart sound and no murmurs GI normal to inspection, nondistended, normoactive bowel sounds, soft to palpation, non-tender and non-distended Extremity normal to inspection, full ROM and no clubbing, cyanosis or edema Peripheral Pulses: Yes pulses 2+ throughout Skin no rashes or lesions noted Neuro oriented x3 Sensorium / Orientation: awake and alert Psych affect normal Assessment & Plan Assessment/Plan (1) Alcohol withdrawal: (2) Back pain: PLAN: #Acute alcohol withdrawal * on alcohol withdrawal protocol with phenobarbital * on thiamine, folic acid and multivite * monitor CIWA score * #Chronic back pain * on flexeril and tylenol * to follow up with PCP on outpatient basis. * #Nicotine dependence: chews tobacco. On nicotine patch DVT prophylaxis: low risk, encourage to ambulate. Charges/Coding Visit Charges Inpatient E&M: 91129 Subs Hosp L2
[2020-08-12] MEDS: 0.9% Saline Lock 10 ML Syringe IV (13:38)
--- NOTE | 2020-08-12 16:32 | CHAPLAIN ---
Type of Pastoral Visit _x__ Initial Visit ___ Follow-up Visit ___ On-call Visit ___ General Patient Visit ___ Spiritual Assessment ___ Family Conference ___ Bereavement ___ Rapid Response ___ Code Blue ___ Other (describe below) Pastoral Care Referral From _x__ Patient ___ Family ___ Nurse ___ Physician ___ House Mover Supervisor ___ Application Development Liaison ___ Other (describe below) Sacrament/Intervention _x__ Active listening ___ Anointing ___ Baptist ___ Bereavement ___ Communion _x__ Terri exploration ___ _x__ Life review _x__ Prayer ___ Reconciliation ___ Sacrament of Sick _x__ Supportive presence ___ Wedding ___ Other (describe below) Pastoral Comments RN notified this welfare investigator that patient would like a Bible and a visit by this welfare investigator; pt agreed to receive the Bible and gave life review which included much of his spiritual perspective and realization of spiritual help needed; prayer and presence given
[2020-08-12] MEDS: LORazepam 1 MG Tablet PO (20:49)
[2020-08-12] MEDS: cycloBENZAPRine HCl 10 MG Tablet PO (20:50)
[2020-08-13 02:24] VITALS: BP 125/88; PULSE 72; RESP 15; TEMP 36.5; O2SAT 97
[2020-08-13] MEDS: Phenobarbital 32.4 MG Tablet 64.8 MG PO ×3 (02:26→09:21)
[2020-08-13] MEDS: cycloBENZAPRine HCl 10 MG Tablet PO (05:31)
[2020-08-13] MEDS: hydrOXYzine PAM 25 MG Capsule 50 MG PO (05:31)
--- NOTE | 2020-08-13 06:55 | PN.HOSP_ITS ---
Subjective Subjective Patient seen and examined. He had no complaints today and had an uneventful night. He has remained hemodynamically stable. Systems otherwise negative. Objective Data Objective Data Vital Signs: Vital Signs Temp Pulse Resp BP Pulse Ox 97.7 F L 72 15 125/88 H 97 08/13/20 02:24 08/13/20 02:24 08/13/20 02:24 08/13/20 02:24 08/13/20 02:24 Oxygen Delivery Method Room Air Weight: 200 lb 11.2 oz Body Mass Index (BMI) 27.2 Intake & Output: Intake and Output for Last 24 Hours 08/11/20 08/12/20 08/13/20 23:59 23:59 23:59 Intake Total 1500 / 1500 2200 / 2200 1240 / 1240 Balance 1500 / 1500 2200 / 2200 1240 / 1240 Lab / Micro Data Result Diagrams: 08/11/20 14:25 08/11/20 14:25 Physical Exam Const alert, oriented x3 and no apparent distress Exam Limitations: no limitations HEENT head/scalp atraumatic, moist oral mucous membranes and oropharynx normal Head and Scalp: normocephalic Eyes PERRL, EOMs intact bilaterally and conjunctivae normal Neck no lymphadenopathy, supple and no JVD Resp normal respiratory effort, no retractions, no use of accessory muscles and clear to auscultation bilaterally Cardio regular rate, regular rhythm, S1 normal heart sound, S2 normal heart sound and no murmurs GI normal to inspection, nondistended, normoactive bowel sounds, soft to palpation, non-tender and non-distended Extremity normal to inspection, full ROM and no clubbing, cyanosis or edema Skin no rashes or lesions noted Neuro oriented x3 Sensorium / Orientation: awake and alert Psych affect normal Assessment & Plan Assessment/Plan (1) Alcohol withdrawal: (2) Back pain: PLAN: #Acute alcohol withdrawal * on alcohol withdrawal protocol with phenobarbital * on thiamine, folic acid and multivite * monitor CIWA score * #Chronic back pain * on flexeril and tylenol * to follow up with PCP on outpatient basis. * #Nicotine dependence: chews tobacco. On nicotine patch DVT prophylaxis: low risk, encourage to ambulate. Charges/Coding Visit Charges Inpatient E&M: 54575 Subs Hosp L2
[2020-08-13 07:47] VITALS: BP 130/86; PULSE 81; RESP 16; TEMP 36.7; O2SAT 95
[2020-08-13 07:50] VITALS: PULSE 72
[2020-08-13] MEDS: Thiamine Hydrochloride 100 MG Tablet PO (07:50)
[2020-08-13] MEDS: Folic Acid 1 MG Tablet PO (07:50)
--- NOTE | 2020-08-13 12:34 | PCM.DC.SUM ---
Providers Date of Admission: 08/11/20 Primary Care Physician: Mabel Primary Care Phys Reason For Visit: ETOH DETOX Diagnosis Discharge Diagnosis (1) Alcohol withdrawal: Status: Acute Code(s): F10.239 - Alcohol dependence with withdrawal, unspecified (2) Back pain: Status: Acute Code(s): M54.9 - Dorsalgia, unspecified Medications at Discharge Home Medications cyclobenzaprine 10 mg PO TID PRN #14 tab 08/06/20 ibuprofen 600 mg PO Q6H PRN PRN #20 tab 08/06/20 Hospital Course Operations None Procedures None Summary of Care Provided Minutes Spent on Discharge: 35 Hospital Course: Patient is a 40-year-old male with a past medical history of alcohol abuse and nicotine dependence was admitted through the ED on 08/11/2020 for acute alcohol withdrawal. He had been admitted in April 2020 and went through detox and said he was fine afterwards but started having back pain and so started binge drinking to manage the pain. His last drink was on the morning of admission. He was admitted and managed for acute alcohol withdrawal. He was started on alcohol withdrawal protocol with phenobarbital. Serum alcohol level was 389 at time of admission. Patient tolerated 2 days of the detox process. On 08/13/2020, patient requested to leave and was counseled to stay for 1 more day to complete a 3-day detox process. Patient was initially agreeable but later in the day, patient decided to sign out AGAINST MEDICAL ADVICE. Patient left AGAINST MEDICAL ADVICE on 08/13/2020. Physical Exam Const alert, oriented x3 and no apparent distress General Appearance: cooperative and comfortable Exam Limitations: no limitations HEENT head/scalp atraumatic, moist oral mucous membranes and oropharynx normal Eyes PERRL, EOMs intact bilaterally and conjunctivae normal Neck no lymphadenopathy, supple and no JVD Resp normal respiratory effort, no retractions, no use of accessory muscles and clear to auscultation bilaterally Cardio regular rate, regular rhythm, S1 normal heart sound, S2 normal heart sound and no murmurs GI normal to inspection, nondistended, normoactive bowel sounds, soft to palpation, non-tender and non-distended Extremity normal to inspection, full ROM and no clubbing, cyanosis or edema Skin no rashes or lesions noted Neuro oriented x3 Sensorium / Orientation: awake and alert Psych affect normal Weight / BMI Weight Weight: 200 lb 11.2 oz Body Mass Index (BMI) 27.2 ABG / Lab / Microbiology Data Result Diagrams: 08/11/20 14:25 08/11/20 14:25 D/C Instructions Discharge Diet: No restrictions Meaningful Use Info Meaningful Use Diagnoses (Choose all that apply): None applicable Discharge Plan Admission Admit Date/Time: 08/11/20 16:11 Attending Provider: Sabi Herrera Primary Care Provider: Care Physician,No Primary Discharge Orders/Prescriptions Prescriptions: No Action cyclobenzaprine 10 mg tablet 10 mg PO TID PRN (Reason: muscle spasm) Qty: 14 RF: 0 ibuprofen 600 mg tablet 600 mg PO Q6H PRN PRN (Reason: Pain Score 1-10/10) Qty: 20 RF: 0 Referrals / Follow Up: Care Physician,No Primary [Primary Care Provider] - Disposition Disposition (needs filled in before D/C Order can be placed): Against Medical Advice Charges/Coding Visit Charges Inpatient E&M: 94355 Disch Hosp
== END 2020-08-13 12:40 | disposition left against medical advice (07) | DRG 770 ==
LOC: ED 14:23 → MS3 16:25
PROVIDERS: Admitting Provider Internal Medicine; Emergency Provider Emergency Medicine; Visit Provider Student in an Organized Health Care Education/Training Program
DX: F10.239 Alcohol dependence with withdrawal, unspecified (principal); Y90.8 Blood alcohol level of 240 mg/100 ml or more; M54.5 Low back pain; G89.29 Other chronic pain; F41.9 Anxiety disorder, unspecified; F17.220 Nicotine dependence, chewing tobacco, uncomplicated; Z79.899 Other long term (current) drug therapy
CPT/HCPCS: 80053; 80307; 81001; 82077; 85025; 93005; 96372; 99251; 99282; 99284; 99406; J7030; A4216; G0463

== ENCOUNTER 2020-11-02 13:01 | Emergency (ER) | payer MEDICAID, SELFPAY ==
[2020-11-02 13:01] VITALS: BP 136/104; PULSE 107; RESP 20; TEMP 37; O2SAT 96; BMI 27.2
[2020-11-02 13:06] VITALS: BP 136/104; PULSE 107; RESP 20; TEMP 37; O2SAT 96
--- NOTE | 2020-11-02 13:14 | CT_ITS ---
STUDY: CTA CHEST REASON FOR EXAM: Male, 40 years old. Covid pneumonia and pulmonary embolism RADIATION DOSAGE (If Supplied By Facility): CTDIvol = ( 10.79 ) mGy, DLP = ( 487.79 ) mGycm TECHNIQUE: The examination was performed with the intravenous administration of IV 100mL Isovue-300. Post-processing of the angiographic images was performed, with multiplanar reformation and 3D reconstruction. Individualized dose optimization techniques were used for this CT. COMPARISON: None. FINDINGS: Examination is mildly/moderately technically suboptimal. Large or central arteries are fully evaluable. More distal medium and smaller arteries are not due to heterogeneity of density/contrast in the pulmonary arteries, possibly due to contrast mixing and beam artifact. Diagnostic information is available. There is no large or central pulmonary embolism. There are minimal questionable hypodense findings in the smaller arteries, possibly artifact, less likely pulmonary embolism. There is multifocal viral/Covid pneumonia with nodular groundglass opacities. Central airways are patent. There is no pulmonary edema or pleural effusions. Mediastinal contents are normal. Cardiac chambers are normal in size and shape. Aorta is normal. Osseous structures are normal. CT/CTA Chest W/WO Contrast IMPRESSION: 1. Mildly/moderately technically suboptimal study. 2. No large, central or symmetrically significant pulmonary embolism. 3. Low but nonzero probability of pulmonary embolism. Recommend further risk stratification with ultrasonography of the lower exterminates venous system. A negative ultrasound of the lower exterminates will confirm that the findings in the pulmonary arteries are artifactual. 4. Covid pneumonia. Electronically Signed: Alex Quarles MD at 14:36 EDT Tel , Service support ,
--- NOTE | 2020-11-02 13:16 | ED.VIS.DYS ---
HPI History of Present Illness Chief Complaint: Shortness of Breath Informant: patient Narrative Narrative: 40-year-old male presents the emergency room out of concern for dyspnea and Covid. Tells me he has a history of asthma. He states that 12 days ago he was riding in a vehicle for work with an individual who the next day did not show up from work but he found out he had Covid. Patient states the very next day he developed symptoms. He notes cough runny nose sore throat headache diarrhea and dyspnea. He has a history of asthma but states he has not had any asthma issues for several years. He states that when he began to have shortness of breath he was using his inhalers but they did not seem to be helping (he does note that they are very old). He states his pulse ox is 91% at home today. He notes a burning sensation in his chest. He states it is difficult for him to take a deep breath PFSH PFSH Medical History Alcohol abuse Anxiety Back pain Non-smoker Home Medications albuterol sulfate 2.5 mg INHALATION Q4H PRN #25 vial 11/02/20 [Rx Last Taken Unknown] dexamethasone 6 mg PO DAILY #7 tab 11/02/20 [Rx Last Taken Unknown] Allergy/AdvReac Type Severity Reaction Status Date / Time No Known Allergies Allergy Verified 11/02/20 13:16 Social History household members: other housing: other number of children: 3 ([facility] also has girlfriend with 3 addition children) other: [facility] lives with girlfriend at times and parents at times Smoking Status: Never smoker alcohol intake: current details: [facility] went through Detox april 2020 but started binge drinking 1 week ago, ROS ROS ED Constitutional Constitutional ED: Reports chills, fever(s) and sweats; Denies weight loss Eyes Eyes: Reports other Details: Loss of taste and smell ; Denies change in vision or diplopia ENT ENT ED: Reports rhinorrhea and sore throat; Denies ear pain Cardiovascular Cardiovascular: Reports chest pain; Denies orthopnea, palpitations or racing heartbeat Respiratory/Chest Respiratory/Chest: Reports cough, dyspnea and dyspnea on exertion; Denies orthopnea Gastrointestinal Gastrointestinal: Reports diarrhea; Denies abdominal pain, nausea or vomiting Genitourinary Genitourinary ED: Denies dysuria, hematuria or urinary frequency Musculoskeletal Musculoskeletal: Reports myalgias; Denies arthralgias Integumentary Denies abscess or rash Neurologic Neurologic: Reports headache(s); Denies weakness Psychiatric Psychiatric: Denies anxiety, depression, suicidal ideation or suicidal thoughts Endocrine Endocrinology: Denies polydipsia, polyphagia or polyuria Allergic/Immunologic Allergic/Immunologic ED: Denies mouth swelling, tongue swelling or urticaria EXAM Physical Exam Const Vital Signs: 11/02/20 13:01 11/02/20 13:06 11/02/20 13:13 Temperature 98.6 F 98.6 F Temperature Source Temporal Temporal Pulse Rate 107 H 107 H Respiratory Rate 20 H 20 H Respiratory Effort Normal Non-Labored Respiratory Depth Normal Respiratory Pattern Normal Blood Pressure 136/104 H 136/104 H Blood Pressure Mean 114 114 Pulse Ox 96 96 Oxygen Delivery Method Room Air Room Air 11/02/20 14:21 Temperature 98.6 F Temperature Source Temporal Pulse Rate 106 H Respiratory Rate 21 H Respiratory Effort Respiratory Depth Respiratory Pattern Blood Pressure 135/87 H Blood Pressure Mean 103 Pulse Ox 96 Oxygen Delivery Method Room Air Positive well nourished and well developed General Appearance ED: well developed HEENT Reports normocephalic, head/scalp atraumatic and moist mucous membranes Eyes PERRL and EOMs intact bilaterally Neck no lymphadenopathy, supple and no JVD Resp normal respiratory effort and clear to auscultation bilaterally Cardio regular rate, regular rhythm and no murmurs GI normal to inspection, nondistended, normoactive bowel sounds and non-tender Palpation: soft Back/Spine no CVA tenderness and normal ROM Extremity normal to inspection General Extremety ED: Negative for edema General Extremity: Negative for edema Neuro oriented x3 and CN's II-XII intact bilaterally Sensorium / Orientation: alert Motor Exam: strength 5/5 throughout Psych mental status grossly normal Mood & Affect: Negative for depressed or tearful Skin no rashes or lesions noted and no wounds MDM MDM MDM Narrative Medical decision making narrative: Basic blood work showed a white count of 4.1. Normal lactic acid. Troponin normal at 6. CTA was low probability for pulmonary embolism. There are multiple areas of pneumonitis consistent with his COVID-19. The patient received albuterol MDI. He has a nebulizer at home. I am also start him on dexamethasone. Lab Data Attestation: I reviewed the patient's lab results. Labs: Laboratory Results - last 24 hr 11/02/20 11/02/20 11/02/20 13:30 13:30 13:30 WBC 4.1 L RBC 5.38 Hgb 16.6 H Hct 46.7 MCV 86.8 MCH 30.9 MCHC 35.5 RDW Std Deviation 38.4 RDW Coeff of [place] 12.0 Plt Count 172 MPV 8.6 Immature Gran % (Auto) 0.700 Neut % (Auto) 64.0 Lymph % (Auto) 25.4 [place] % (Auto) 9.9 Eos % (Auto) 0.0 Baso % (Auto) 0.0 Absolute Neuts (auto) 2.6 Absolute Lymphs (auto) 1.03 Nucleated RBC % 0 Sodium 133 L Potassium 3.3 L Chloride 97 L Carbon Dioxide 28.0 Anion Gap 8 BUN 7 Creatinine 0.94 Estim Creat Clear Calc 113.51 Est GFR (MDRD) Af Amer 113 Est GFR (MDRD) Non-Af 94 BUN/Creatinine Ratio 7.4 L Glucose 104 Lactic Acid 1.1 Calcium 8.6 Total Bilirubin 0.70 AST 70 H ALT 56 Alkaline Phosphatase 93 Troponin I High Sens 6 Total Protein 8.1 Albumin 3.5 Globulin 4.6 H Albumin/Globulin Ratio 0.8 L Radiography Diagnostic Testing: Radiology Impression Chest CTA 11/02/20 13:14 IMPRESSION: 1. Mildly/moderately technically suboptimal study. 2. No large, central or symmetrically significant pulmonary embolism. 3. Low but nonzero probability of pulmonary embolism. Recommend further risk stratification with ultrasonography of the lower exterminates venous system. A negative ultrasound of the lower exterminates will confirm that the findings in the pulmonary arteries are artifactual. 4. Covid pneumonia. Electronically Signed: Alex Quarles MD at 14:36 EDT Tel , Service support , Discharge Plan Triage Chief Complaint: Shortness of Breath ED Provider: Tim Christianson Dx/Rx/DC Orders Clinical Impression: COVID-19 Instructions: Coronavirus Disease 2019 (COVID-19): Caring for Yourself or Others Prescriptions: New albuterol sulfate 2.5 MG/3 ML solution for nebulization 2.5 mg inhalation Q4H PRN Qty: 25 RF: 0 dexamethasone 6 MG tablet 6 mg PO DAILY Qty: 7 RF: 0 Primary Care Provider: Care Physician,No Primary Referrals: Care Physician,No Primary [Primary Care Provider] - Disposition Disposition: Home, Self Care
[2020-11-02] MEDS: dexAMETHasone 4 MG Tablet 6 MG PO (13:37)
[2020-11-02 13:38] LABS: Absolute Lymphocyte Count 1.03 X10^3/uL (0.83-4.51); Absolute Neutrophil Count 2.6 X10^3/uL (2.0-7.7); Hematocrit 46.7 % (40-54); Hemoglobin 16.6 g/dL (13.0-16.5); Lymphocyte # 1.03 X10^3/ul (0.83-4.51); Lymphocyte % 25.4 % (19-41); Mean Corp Hgb Conc 35.5 g/dL (32-36); Mean Corpuscular Hgb 30.9 pg (27.0-32.0); Mean Corpuscular Volume 86.8 fL (80-94); Mean Platelet Vol. 8.6 fl (6.2-12.0); Monocyte% 9.9 % (0-10); NRBC Flagged by Analyzer 0 % (0-5); Platelet Count 172 K/mm3 (150-450); RBC Distribution Width SD 38.4 fl (35.1-43.9); Red Blood Count 5.38 M/mm3 (4.6-6.2); White Blood Count 4.1 K/mm3 (4.4-11.0)
[2020-11-02 13:58] LABS: ALB/GLOB Ratio 0.8 RATIO (0.9-2.4); AST(SGOT) 70 U/L (15-37); Alanine Aminotransfer ALT/SGPT 56 U/L (16-61); Albumin, Serum 3.5 g/dL (3.2-5.0); Alkaline Phosphatase 93 U/L (45-117); Anion Gap 8 (5-15); BUN 7 mg/dL (7-18); BUN/Creat Ratio 7.4 RATIO (10-20); Calcium,Total 8.6 mg/dL (8.5-10.1); Chloride 97 mmol/L (98-107); Creatinine, Serum 0.94 mg/dL (0.70-1.30); EST Glomerular Filtration Rate 94 mL/min (>60); Est Glom Filt Rate - Afr Amer 113 mL/min (>60); Estimated Creatinine Clearance 113.51 ml/min; Globulin 4.6 g/dL (2.2-4.2); Glucose 104 mg/dL (74-106); Potassium 3.3 mmol/L (3.5-5.1); Protein, Total 8.1 g/dL (6.4-8.2); Sodium Level 133 mmol/L (136-145); Troponin-I HS 6 pg/mL (3.0-78.0)
[2020-11-02 14:02] LABS: Lactic Acid 1.1 mmol/L (0.4-1.9)
[2020-11-02 14:21] VITALS: BP 135/87; PULSE 106; RESP 21; TEMP 37; O2SAT 96
[2020-11-02 14:56] VITALS: BP 135/85; PULSE 105; RESP 25; O2SAT 95
== END 2020-11-02 15:06 | disposition home or self-care (01) ==
PROVIDERS: Emergency Provider Emergency Medicine
DX: U07.1 COVID-19 (principal); J12.82 Pneumonia due to coronavirus disease 2019; J45.909 Unspecified asthma, uncomplicated; Z79.51 Long term (current) use of inhaled steroids
CPT/HCPCS: 71275; 80053; 83605; 84484; 85025; 87426; 99284; Q9967; A4216

== ENCOUNTER 2021-05-26 07:02 | Observation (INO) | payer MEDICAID, SELFPAY ==
[2021-05-26] VITALS (8 sets, daily range): BP systolic 138–184; BP diastolic 84–130; PULSE 83–107; RESP 16–22; TEMP 36.5–36.9; O2SAT 98–100; BMI 27.3; BMI 26.6
--- NOTE | 2021-05-26 07:22 | EDS_ITS ---
HPI History of Present Illness Chief Complaint: ETOH Intox Informant: patient Onset/Context/Timing Onset: Today Context: Gradual Onset Timing: Continuous Quality: Shaky Location: Generalized Worsened by: Nothing Relieved by: Nothing Associated Symptoms Associated Symptoms: Positive for diarrhea*, tremor and palpatations; Negative for vomiting*, fever*, rash*, seizure, change in mental status, suicidal ideation and homicidal ideation Narrative Narrative: Patient presents requesting alcohol detox. Patient states he has been drinking heavily for the past 3 weeks. Patient drinks approximately 12 beers and a bottle of wine per day. Patient states his last drink was approximately 6 hours ago. Patient was admitted here for detox approximately 9 months ago. Patient states he is starting to feel shaky. Patient denies any seizures. Patient admits to some nausea and diarrhea. Patient denies any suicidal homicidal ideations. Patient also admits to some subjective chills. PFSH PFSH Medical History Alcohol abuse Anxiety Back pain Non-smoker Allergy/AdvReac Type Severity Reaction Status Date / Time No Known Allergies Allergy Verified 05/26/21 07:03 Surgical History no surgical history no surgical history Social History household members: other housing: other number of children: 3 ([facility] also has girlfriend with 3 addition children) other: [facility] lives with girlfriend at times and parents at times Smoking Status: Never smoker alcohol intake: current details: [facility] went through Detox april 2020 but started binge drinking 1 week ago, ROS ROS ED Constitutional Constitutional ED: Denies chills or fever(s) Eyes Eyes: Denies blurry vision or change in vision ENT ENT ED: Denies rhinorrhea or sore throat Cardiovascular Cardiovascular: Reports chest pain and palpitations Respiratory/Chest Respiratory/Chest: Denies cough or dyspnea Gastrointestinal Gastrointestinal: Reports diarrhea and nausea; Denies vomiting Genitourinary Genitourinary ED: Denies dysuria or hematuria Musculoskeletal Musculoskeletal: Reports neck pain; Denies back pain Integumentary Denies abscess or rash Neurologic Neurologic: Reports weakness; Denies headache(s) Allergic/Immunologic Allergic/Immunologic ED: Denies mouth swelling or urticaria EXAM Physical Exam Const Vital Signs: 05/26/21 07:04 05/26/21 07:13 05/26/21 08:11 Temperature 98.1 F Temperature Source Temporal Pulse Rate 107 H 99 89 Respiratory Rate 22 H 16 17 Blood Pressure 184/130 H 138/103 H Blood Pressure Mean 148 114 Pulse Ox 99 98 98 Oxygen Delivery Method Room Air Room Air Room Air Positive well nourished and well developed General Appearance ED: well developed HEENT Reports moist mucous membranes Neck supple and no JVD Resp normal respiratory effort and clear to auscultation bilaterally Cardio regular rate, regular rhythm and no murmurs GI normal to inspection, nondistended, normoactive bowel sounds and non-tender Palpation: soft Extremity normal to inspection General Extremety ED: Negative for edema or tenderness General Extremity: Negative for edema Neuro oriented x3, CN's II-XII intact bilaterally and no sensory deficits noted Sensorium / Orientation: awake and alert Speech: speech normal Motor Exam: strength 5/5 throughout and tremor Positive for bilateral upper extremity Psych mental status grossly normal and thought process normal Skin no rashes or lesions noted MDM MDM MDM Narrative Medical decision making narrative: EKG was obtained. On my interpretation, it showed a normal sinus rhythm with a rate of 89. [place] interval, QRS interval, and QTc intervals were all normal. [place] was normal. There are no acute ST or T wave changes. CBC was within normal limits. Comprehensive metabolic profile was essentially within normal limits. Lipase was normal. Troponin was normal. Serum alcohol level was 187. Urinalysis is within normal limits. Urine tox screen is ordered and is negative. Portable 1 view chest x-ray was obtained. On my interpretation, lung smith are clear. There is normal cardiac silhouette. Bony thorax is normal. There is no acute process noted. Radio logist also interpreted the x-ray and agrees. Patient stated that he punched a door 1 week ago and felt like he broke his left hand. Because of this, x-ray of the left hand was obtained. There is a nondisplaced comminuted fracture of the fourth metacarpal. There is no angulation or displacement. Radiologist also interpreted the x-ray and agrees. Patient was given a dose of phenobarbital initially. Patient became nauseated. Patient was given a dose of Zofran. A well-padded custom made short arm volar splint was applied using 4 inch Ortho- Glass was placed on the left hand and forearm. Neurovascular exam was intact before and after the procedure. Patient tolerated procedure well. Case was discussed with the hospitalist. She will admit the patient to her service. Patient understood and was agreeable with the plan. All questions were answered. Lab Data Attestation: I reviewed the patient's lab results. Labs: Laboratory Results - last 24 hr 05/26/21 05/26/21 05/26/21 07:10 07:10 07:10 WBC 8.2 RBC 5.67 Hgb 17.9 H Hct 50.0 MCV 88.2 MCH 31.6 MCHC 35.8 RDW Std Deviation 41.1 RDW Coeff of [place] 12.7 Plt Count 215 MPV 8.7 Immature Gran % (Auto) 0.400 Neut % (Auto) 56.2 Lymph % (Auto) 33.0 [place] % (Auto) 7.4 Eos % (Auto) 2.4 Baso % (Auto) 0.6 Absolute Neuts (auto) 4.6 Absolute Lymphs (auto) 2.71 Nucleated RBC % 0 Sodium 135 L Potassium 3.7 Chloride 102 Carbon Dioxide 24.0 Anion Gap 9 BUN 10 Creatinine 0.90 Estim Creat Clear Calc 117.36 Est GFR (MDRD) Af Amer 120 Est GFR (MDRD) Non-Af 99 BUN/Creatinine Ratio 11.2 Glucose 112 H Calcium 9.0 Phosphorus Total Bilirubin 0.80 AST 65 H ALT 70 H Alkaline Phosphatase 99 Troponin I High Sens 4 Total Protein 8.3 H Albumin 4.2 Globulin 4.1 Albumin/Globulin Ratio 1.0 Lipase 274 Urine Color Urine Clarity Urine pH Ur Specific [place] Urine Protein Urine Glucose (UA) Urine Ketones Urine Occult Blood Urine Nitrite Urine Bilirubin Urine Urobilinogen Ur Leukocyte Esterase Urine RBC Urine WBC Ur Squamous Epith Cells Urine Bacteria Urine Mucus Urine Opiates Screen Urine Methadone Screen Ur Barbiturates Screen Ur Phencyclidine Scrn Ur Amphetamines Screen MDMA (Ecstasy) Screen U Benzodiazepines Scrn Urine Cocaine Screen U Cannabinoids Screen Ur Drug Screen Comment Ethyl Alcohol 187.0 05/26/21 05/26/21 05/26/21 07:10 08:05 08:05 WBC RBC Hgb Hct MCV MCH MCHC RDW Std Deviation RDW Coeff of [place] Plt Count MPV Immature Gran % (Auto) Neut % (Auto) Lymph % (Auto) [place] % (Auto) Eos % (Auto) Baso % (Auto) Absolute Neuts (auto) Absolute Lymphs (auto) Nucleated RBC % Sodium Potassium Chloride Carbon Dioxide Anion Gap BUN Creatinine Estim Creat Clear Calc Est GFR (MDRD) Af Amer Est GFR (MDRD) Non-Af BUN/Creatinine Ratio Glucose Calcium Phosphorus 2.5 Total Bilirubin AST ALT Alkaline Phosphatase Troponin I High Sens Total Protein Albumin Globulin Albumin/Globulin Ratio Lipase Urine Color Yellow Urine Clarity Clear Urine pH 7.0 Ur Specific [place] 1.010 Urine Protein Negative Urine Glucose (UA) Normal Urine Ketones 5 H Urine Occult Blood 10 H Urine Nitrite Negative Urine Bilirubin Negative Urine Urobilinogen Normal Ur Leukocyte Esterase Negative Urine RBC 0-5 SEEN Urine WBC 0 SEEN Ur Squamous Epith Cells 0 SEEN Urine Bacteria 0 SEEN Urine Mucus 0 SEEN Urine Opiates Screen NEGATIVE Urine Methadone Screen NEGATIVE Ur Barbiturates Screen NEGATIVE Ur Phencyclidine Scrn NEGATIVE Ur Amphetamines Screen NEGATIVE MDMA (Ecstasy) Screen NEGATIVE U Benzodiazepines Scrn NEGATIVE Urine Cocaine Screen NEGATIVE U Cannabinoids Screen NEGATIVE Ur Drug Screen Comment Ethyl Alcohol Radiography Chest X-Ray - ED: 1 View, Read by ED Physician, Read by Radiologist and No Acute Disease Diagnostic Testing: Clinical Impression(s) from Imaging Studies Chest X-Ray 05/26/21 07:27 IMPRESSION: Stable, nonacute portable x-ray examination of the chest. Electronically Signed: Ajit Smith MD ([place]) at 8:16 EDT Reading Location ID and State: / [place] , Service support , Hand X-Ray 05/26/21 07:36 IMPRESSION: Fourth metacarpal fracture. Electronically Signed: Ajit Smith MD ([place]) at 8:16 EDT , EKG Initial EKG: Attestation: I personally reviewed and interpreted this EKG as follows: Interpretation: Sinus Rhythm (89) and No Acute Injury Pattern Prior EKG tracings: available for review Prior: Unchanged (08/11/2020) Procedures Upper Extremity Splints Upper Extremity Splint: Orthoglass and Volar Splint Fabrication: Fabricated Location: Left Discharge Plan Dx/Rx/DC Orders Clinical Impression: Alcohol withdrawal, Closed fracture of fourth metacarpal bone of left hand Disposition Disposition: Acute Care Hospital [facility] Discharge Date/Time: 05/26/21 09:13
--- NOTE | 2021-05-26 07:27 | EKG12_ITS ---
Test Reason : DYSRHYTHMIA Blood Pressure : / mmHG Vent. Rate : 089 BPM Atrial Rate : 089 BPM P-R Int : 152 ms QRS Dur : 094 ms QT Int : 354 ms P-R-T Axes : 040 074 027 degrees QTc Int : 430 ms Normal sinus rhythm Normal ECG Confirmed by DEVANTE PINO, KIM ([id number]), editor map TRISH SAHNI ([id number]) on 05/27/2021 10:22:08 AM Referred By: LIA Confirmed By:KIM LOW MD
--- NOTE | 2021-05-26 07:27 | RAD_ITS ---
STUDY: X-RAY CHEST REASON FOR EXAM: Male, 41 years old. Chest pain TECHNIQUE: AP COMPARISON: 03/28/2020 FINDINGS: EKG leads project over the chest. The lungs are clear and expanded. There is no demonstrated pleural abnormality. Normal size heart. Normal mediastinum and [place]. Normal visualized pulmonary arteries. Normal visualized aortic arch and descending thoracic aorta. Normal visualized thoracic spine. Normal visualized ribs, clavicles, and shoulders. There is no demonstrated abnormality of the visualized soft tissue structures of the upper abdomen. RAD/Chest 1 View (Portable) IMPRESSION: Stable, nonacute portable x-ray examination of the chest. Electronically Signed: Ajit Smith MD ([place]) at 8:16 EDT ,
[2021-05-26] MEDS: Phenobarbital 32.4 MG Tablet PO (07:33)
[2021-05-26] MEDS: 0.9% Normal Saline 1,000 ML 1000 ML IV (07:33)
--- NOTE | 2021-05-26 07:36 | RAD_ITS ---
STUDY: X-RAY - LEFT HAND REASON FOR EXAM: Male, 41 years old. Injury, pain involving the fourth metacarpal TECHNIQUE: 3 view(s) of the hand. COMPARISON: None. FINDINGS: Normal radiocarpal articulation. Normal distal radioulnar joint. Normal visualized carpal bones. Normal carpal articulations Normal carpometacarpal articulation of the thumb. Normal second through fifth carpometacarpal joints. Comminuted fracture of the fourth metacarpal diaphysis extending to the metacarpal neck with mild displacement. Mild foreshortening of the fourth metacarpal. Normal metacarpophalangeal joint of the thumb. Normal interphalangeal joint of the thumb. Normal proximal and distal phalanges of the thumb. Normal metacarpophalangeal joints of the second through fifth fingers. Normal proximal and distal interphalangeal joints of the second through fifth fingers. Normal phalanges of the second through fifth fingers. Soft tissue swelling. RAD/Hand Min 3 Views IMPRESSION: Fourth metacarpal fracture. Electronically Signed: Ajit Smith MD ([place]) at 8:16 EDT ,
[2021-05-26 07:39] LABS: Absolute Lymphocyte Count 2.71 X10^3/uL (0.83-4.51); Absolute Neutrophil Count 4.6 X10^3/uL (2.0-7.7); Basophil# 0.05 X10^3/uL; Basophil% 0.6 % (0-1); Eosinophils% 2.4 % (0-5); Hemoglobin 17.9 g/dL (13.0-16.5); Lymphocyte # 2.71 X10^3/ul (0.83-4.51); Mean Corp Hgb Conc 35.8 g/dL (32-36); Mean Corpuscular Hgb 31.6 pg (27.0-32.0); Mean Corpuscular Volume 88.2 fL (80-94); Mean Platelet Vol. 8.7 fl (6.2-12.0); Monocyte# 0.61 X10^3/uL; Monocyte% 7.4 % (0-10); NRBC Flagged by Analyzer 0 % (0-5); Neutrophil # 4.61 X10^3/uL (2.7-7.7); Neutrophil % 56.2 % (47-70); Platelet Count 215 K/mm3 (150-450); RBC Distribution Width CV 12.7 % (11.6-14.6); RBC Distribution Width SD 41.1 fl (35.1-43.9); Red Blood Count 5.67 M/mm3 (4.6-6.2); White Blood Count 8.2 K/mm3 (4.4-11.0)
[2021-05-26 07:55] LABS: AST(SGOT) 65 U/L (15-37); Alanine Aminotransfer ALT/SGPT 70 U/L (16-61); Albumin, Serum 4.2 g/dL (3.2-5.0); Alkaline Phosphatase 99 U/L (45-117); Anion Gap 9 (5-15); BUN 10 mg/dL (7-18); BUN/Creat Ratio 11.2 RATIO (10-20); Chloride 102 mmol/L (98-107); EST Glomerular Filtration Rate 99 mL/min (>60); Est Glom Filt Rate - Afr Amer 120 mL/min (>60); Estimated Creatinine Clearance 117.36 ml/min; Globulin 4.1 g/dL (2.2-4.2); Glucose 112 mg/dL (74-106); Lipase 274 U/L (73-393); Potassium 3.7 mmol/L (3.5-5.1); Protein, Total 8.3 g/dL (6.4-8.2); Sodium Level 135 mmol/L (136-145); Troponin-I HS 4 pg/mL (3.0-78.0)
[2021-05-26 08:14] LABS: Bacteria 0 SEEN /hpf (None Seen); Mucous, Urine 0 SEEN /hpf (<or=2+); Squamous Epithelial Cells - UA 0 SEEN /hpf (0-5); White Blood Cells 0 SEEN /hpf (0-5)
[2021-05-26] MEDS: Ondansetron 4 MG/2 ML Vial IV (08:14)
[2021-05-26 08:17] LABS: Color, Urine Yellow (Yellow); Glucose, Dipstick Normal (Normal); Ketone-Dipstick 5 mg/dl (Negative); Leukocyte Esterase-Dipstick Negative /ul (Negative); Nitrite-Dipstick Negative (Negative); Occult Blood-Urine 10 /ul (Negative); Protein-Dipstick Negative (Negative); Urine Bilirubin Dipstick Negative (Negative); Urine Clarity Clear (Clear); Urine Urobilinogen Normal (Normal)
[2021-05-26 08:25] LABS: Red Blood Cells-Urine 0-5 SEEN /hpf (0-5)
[2021-05-26 09:02] LABS: Amphetamine Urine VISTA NEGATIVE (<1000 ng/mL); Barbiturate Urine VISTA NEGATIVE (< 200 ng/mL); Benzodiazepine Urine VISTA NEGATIVE (< 200 ng/mL); Cocaine Urine VISTA NEGATIVE (< 300 ng/mL); Ecstacy Urine VISTA NEGATIVE (< 500 ng/mL); Methadone Urine VISTA NEGATIVE (< 300 ng/mL); PCP Urine VISTA NEGATIVE (< 25 ng/mL); THC Urine VISTA NEGATIVE (< 50 ng/mL); Vista UDS pH Range 6
[2021-05-26 09:09] LABS: Phosphorus 2.5 mg/dL (2.5-4.9)
--- NOTE | 2021-05-26 09:21 | CM.ED ---
JOSE Note Referral Source: nursing home assistant administratorinvestment professional Reason: [facility] SW met with patient. Patient reports he is here for detox. Patient last used alcohol 7-8 hours ago. Patient reports he is detoxing from alcohol- wine and beer. Patient is familiar with the detox program as he was here in the past and is aware of the rules. Patient reports he tried to detox at home but felt like he was going to . Patient said that he was trying to get the courage up to do detox. Discussed with patient the reason he came for detox and patient said that his girlfriend said he needed help. SW helped patient focus on why he is getting help at this time. Patient reports he broke his hand doing something stupid. SW asked patient to expand on what happened and patient said that he was drinking and mad at himself for drinking so he punched the door. SW provided emotional support to patient on his choice to come to the ED to get help with alcohol use. SW called Vivek, Addiction Therapist and updated her regarding patient being admitted to [facility] program. Plan: Admission to [facility] Tia MORENO
[2021-05-26] MEDS: hydrOXYzine PAM 25 MG Capsule 50 MG PO (10:16)
[2021-05-26] MEDS: Phenobarbital 32.4 MG Tablet 64.8 MG PO ×4 (10:16→22:35)
--- NOTE | 2021-05-26 11:21 | ADDICTION ---
This worker met with pt to do ASAM, AUDIT, MSE, ZAHIDA's and D/C planning. Pt plans on following up with [facility] for IOP treatment. He will go in by 05/30/21 to have an assessment. Pt is not interested in residential treatment at this time.
[2021-05-26] MEDS: Ibuprofen 400 MG Tablet PO (11:39)
[2021-05-26] MEDS: LORazepam 1 MG Tablet 2 MG PO (11:40)
[2021-05-26] MEDS: Gabapentin 300 MG Capsule PO ×2 (11:41→20:40)
--- NOTE | 2021-05-26 12:37 | PCM.HP.STD ---
HPI - General General Date of Admission: 05/26/21 Date of Service: 05/26/21 Chief Complaint: Acute alcohol withdrawal HPI Narrative GUME VANEGAS, is a 41 M who presented emergency department [facility] on 05/26/2021 with the request for alcohol detox. The patient had been admitted here on 05/21/2020 through 05/24/2020 previously for acute alcohol detox and states he had been doing well up until 3 weeks ago where he started drinking again. He states that he is drinking approximately 1212 ounce beers that are higher percentage alcohol and 1 bottle of wine daily. His last drink was approximately 6 to 7 hours prior to presentation. He also utilizes chewing tobacco. Upon presentation he was feeling like he was starting to withdraw having tremor and nausea. He denied any diarrhea at this time but he was mildly hypertensive and tachycardic. In the emergency department he was afebrile with a heart rate in the low 100s, blood pressure was 184/130, respiratory rate was 22 and oxygen saturation was 98 to 99% on room air. His CBC was overall unremarkable other than an erythrocytosis with a hemoglobin of 17.9. I suspect that this is related to dehydration. His chemistry panel showed mild hyponatremia with a sodium of 135 and transaminase elevation with an AST of 65 and ALT of 70, his alk phos and bilirubin within normal limits. A lipase was obtained and found to be 274. His UA was unimpressive. His tox screen was negative except for ethyl alcohol with a blood alcohol level of 187.0 mg/dL. In the emergency department he was treated with low-dose phenobarbital and request for admission for detox was made. [facility] Medical History Alcohol abuse Anxiety Back pain COVID-19 Non-smoker Tobacco chew use Medical History no medical history Allergy/AdvReac Type Severity Reaction Status Date / Time No Known Allergies Allergy Verified 05/26/21 07:03 Family History (Updated 05/26/21 @ 12:[address] Emily Torres DO) Other Substance abuse Surgical History History of hand surgery Surgical History no surgical history Social History (Updated 05/26/21 @ 12:[address] Emily Torres DO) household members: other housing: other number of children: 3 ([facility] also has girlfriend with 3 addition children) other: states lives with girlfriend at times and parents at times Smoking Status: Never smoker Smokeless tobacco user: chewing tobacco alcohol intake: current details: states went through Detox april 2020 but started binge drinking 3 week ago substance use type: does not use ROS Constitutional Constitutional: Reports chills, malaise and other Details: Sweating Eyes Eyes: Denies blurry vision, change in eye color, change in vision, discharge from eye(s), double vision, erythema, eye pain, loss of vision or other ENT HEENT: Denies abnormal hearing, dysphagia, ear pain, epistaxis, headache(s), hearing loss, nasal congestion, nasal discharge, post nasal drip, sinus pressure, sore throat or other Cardiovascular Cardiovascular: Denies chest pain, claudication, dyspnea on exertion, edema, lightheadedness, orthopnea, palpitations, paroxysmal nocturnal dyspnea, rapid heart rate, syncope or other Respiratory/Chest Respiratory/Chest: Denies cough, dyspnea, excessive phlegm production, hemoptysis, productive cough, shortness of breath at rest, shortness of breath with exertion, wheezing or other Gastrointestinal Gastrointestinal: Reports nausea; Denies abdominal pain, coffee ground emesis, constipation, diarrhea, dyspepsia, hematemesis, hematochezia, loose stools, melena, vomiting or other Genitourinary Genitourinary: Denies burning urination, difficulty urinating, dysuria, hematuria, nocturia, urinary frequency, urinary hesitancy, urinary incontinence, urinary urgency or other Musculoskeletal Musculoskeletal: Reports myalgias; Denies arthralgias, back pain, joint pain, joint stiffness, joint swelling, neck pain or other Neurologic Neurologic: Reports tremor(s); Denies abnormal gait, abnormal speech, confusion, disequilibrium, dizziness, focal weakness, headache(s), numbness, paresthesias, seizure-like activity, seizures, syncope, tingling or other Psychiatric Psychiatric: Reports anxiety and depression Endocrine Endocrinology: Denies change in body appearance, cold intolerance, excessive sweating, heat intolerance, polydipsia, polyuria or other Hematologic/Lymphatic Hematologic/Lymphatic: Denies anemia, easy bleeding, easy bruising, lymphadenopathy or other Allergic/Immunologic Allergic/Immunologic: Denies rhinitis, hives, eczemia, asthma or other Vital Signs Vital Signs Vital Signs: 05/26/21 07:04 05/26/21 07:13 05/26/21 08:11 Temperature 98.1 F Temperature Source Temporal Pulse Rate 107 H 99 89 Respiratory Rate 22 H 16 17 Respiratory Effort Respiratory Depth Respiratory Pattern Blood Pressure 184/130 H 138/103 H Blood Pressure Mean 148 114 Blood Pressure Source Blood Pressure Position Blood Pressure Location Pulse Ox 99 98 98 Oxygen Delivery Method Room Air Room Air Room Air 05/26/21 09:06 05/26/21 09:26 05/26/21 09:38 Temperature 97.9 F 97.7 F L Temperature Source Temporal Oral Pulse Rate 92 84 Respiratory Rate 16 16 Respiratory Effort Normal Non-Labored Respiratory Depth Normal Respiratory Pattern Normal Blood Pressure 140/105 H 138/98 H Blood Pressure Mean 116 111 Blood Pressure Source Monitor Blood Pressure Position Sitting Blood Pressure Location Right Arm Pulse Ox 98 100 Oxygen Delivery Method Room Air Room Air Room Air Weight Weight: 88.904 kg Body Mass Index (BMI) 26.6 Physical Exam Const alert, oriented x3, no apparent distress, average body habitus, healthy appearing and well nourished Constitutional Narrative: Middle-aged white male sitting on the edge of the bed, appears anxious but nontoxic, nursing at bedside General Appearance: cooperative HEENT normocephalic, head/scalp atraumatic, hearing grossly normal bilaterally and moist oral mucous membranes HEENT Narrative: Dentition is good, Mallampati is 2-3, no thrush Resp normal respiratory effort, no retractions, no use of accessory muscles and clear to auscultation bilaterally Auscultation: Negative for crackles, rales, rhonchi or wheezes Cardio regular rhythm, S1 normal heart sound, S2 normal heart sound, no murmurs, no rub, no gallops, no clicks and no JVD Cardio Narrative: Mild tachycardia GI normal to inspection, nondistended, normoactive bowel sounds, soft to palpation, non-tender and non-distended; Negative for hepatosplenomegaly Extremity no clubbing, cyanosis or edema Peripheral Pulses: Yes pulses 2+ throughout Neuro oriented x3, CN's II-XII intact bilaterally, moves all extremities and no focal motor deficits Sensorium / Orientation: awake and alert Speech: speech normal Motor Exam: strength 5/5 throughout Psych Mood & Affect: anxious Results Lab / Micro Data Attestation: I reviewed the patient's lab results. Result Diagrams: 05/26/21 07:10 05/26/21 07:10 Labs: Laboratory Results - last 24 hr 05/26/21 07:10: WBC 8.2, RBC 5.67, Hgb 17.9 H, Hct 50.0, MCV 88.2, MCH 31.6, MCHC 35.8, RDW Std Deviation 41.1, RDW Coeff of [place] 12.7, Plt Count 215, MPV 8.7, Immature Gran % (Auto) 0.400, Neut % (Auto) 56.2, Lymph % (Auto) 33.0, [place] % (Auto) 7.4, Eos % (Auto) 2.4, Baso % (Auto) 0.6, Absolute Neuts (auto) 4.6, Absolute Lymphs (auto) 2.71, Nucleated RBC % 0 05/26/21 07:10: Sodium 135 L, Potassium 3.7, Chloride 102, Carbon Dioxide 24.0, Anion Gap 9, BUN 10, Creatinine 0.90, Estim Creat Clear Calc 117.36, Est GFR (MDRD) Af Amer 120, Est GFR (MDRD) Non-Af 99, BUN/Creatinine Ratio 11.2, Glucose 112 H, Calcium 9.0, Total Bilirubin 0.80, AST 65 H, ALT 70 H, Alkaline Phosphatase 99, Troponin I High Sens 4, Total Protein 8.3 H, Albumin 4.2, Globulin 4.1, Albumin/Globulin Ratio 1.0, Lipase 274 05/26/21 07:10: Ethyl Alcohol 187.0 05/26/21 07:10: Phosphorus 2.5 05/26/21 08:05: Urine Color Yellow, Urine Clarity Clear, Urine pH 7.0, Ur Specific [place] 1.010, Urine Protein Negative, Urine Glucose (UA) Normal, Urine Ketones 5 H, Urine Occult Blood 10 H, Urine Nitrite Negative, Urine Bilirubin Negative, Urine Urobilinogen Normal, Ur Leukocyte Esterase Negative, Urine RBC 0-5 SEEN, Urine WBC 0 SEEN, Ur Squamous Epith Cells 0 SEEN, Urine Bacteria 0 SEEN, Urine Mucus 0 SEEN 05/26/21 08:05: Urine Opiates Screen NEGATIVE, Urine Methadone Screen NEGATIVE, Ur Barbiturates Screen NEGATIVE, Ur Phencyclidine Scrn NEGATIVE, Ur Amphetamines Screen NEGATIVE, MDMA (Ecstasy) Screen NEGATIVE, U Benzodiazepines Scrn NEGATIVE, Urine Cocaine Screen NEGATIVE, U Cannabinoids Screen NEGATIVE, Ur Drug Screen Comment Radiology Impression Chest X-Ray 05/26/21 07:27 IMPRESSION: Stable, nonacute portable x-ray examination of the chest. Electronically Signed: Ajit Smith MD ([place]) at 8:16 EDT , Hand X-Ray 05/26/21 07:36 IMPRESSION: Fourth metacarpal fracture. Electronically Signed: Ajit Smith MD ([place]) at 8:16 EDT , Assessment & Plan Assessment/Plan (1) Alcohol withdrawal: (2) Alcohol abuse: (3) Erythrocytosis: PLAN: Acute alcohol withdrawal -Last drink was 6 to 7 hours prior to presentation -Has been drinking 12 12 ounce beers daily and 1 bottle of wine daily -Blood alcohol on presentation was 187.0 mg/dL -Initiate phenobarbital taper -CIWA protocol -As needed Ativan -Thiamine/folate -Supportive medications for withdrawal symptoms -180 consultation Erythrocytosis -Suspect this is related to his dehydration with his chronic alcohol use -Monitor Alcoholic hepatitis -Liver enzymes are slightly elevated -Repeat in a.m. and pursue further work-up if not resolving Tobacco abuse -Patient uses chewing tobacco -Patient currently denies the need for nicotine replacement therapy however I did discuss with him it would be available if he requests Left nondisplaced comminuted fracture of the fourth metacarpal -A well-padded custom short arm volar splint placed by emergency department physician -Result of him punching a door approximately 1 week ago -Patient will need follow-up with outpatient orthopedics after discharge DVT prophylaxis -Low risk -Early ambulation protocol recommended CODE STATUS -Full code Charges/Coding Visit Charges Inpatient E&M: 19791 Init Hosp L2
[2021-05-26] MEDS: traZODone 100 MG Tablet PO (22:35)
[2021-05-27] MEDS: Phenobarbital 32.4 MG Tablet 64.8 MG PO ×6 (02:30→22:03)
[2021-05-27 02:32] VITALS: BP 129/73; PULSE 69; RESP 16; TEMP 36.6; O2SAT 97
[2021-05-27 07:44] LABS: AST(SGOT) 63 U/L (15-37); Alanine Aminotransfer ALT/SGPT 65 U/L (16-61); Albumin, Serum 3.7 g/dL (3.2-5.0); Alkaline Phosphatase 88 U/L (45-117); Anion Gap 4 (5-15); BUN 13 mg/dL (7-18); BUN/Creat Ratio 13.1 RATIO (10-20); Chloride 104 mmol/L (98-107); Creatinine, Serum 0.99 mg/dL (0.70-1.30); EST Glomerular Filtration Rate 88 mL/min (>60); Est Glom Filt Rate - Afr Amer 107 mL/min (>60); Estimated Creatinine Clearance 106.69 ml/min; Globulin 3.6 g/dL (2.2-4.2); Glucose 96 mg/dL (74-106); Protein, Total 7.3 g/dL (6.4-8.2); Sodium Level 135 mmol/L (136-145)
[2021-05-27] MEDS: Folic Acid 1 MG Tablet PO (07:51)
[2021-05-27] MEDS: Thiamine Hydrochloride 100 MG Tablet PO (07:51)
[2021-05-27 09:59] VITALS: BP 114/101; PULSE 83; RESP 18; TEMP 36.8; O2SAT 98
--- NOTE | 2021-05-27 10:44 | ADDICTION ---
Stopped in to discuss relapse prevention and dropped off The Addiction Workbook. Pt was in the shower. Left workbook for pt to read. Will stop in tomorrow.
[2021-05-27 14:00] VITALS: BP 150/91; PULSE 83; RESP 18; TEMP 37.1; O2SAT 96
[2021-05-27] MEDS: Gabapentin 300 MG Capsule PO ×2 (14:12→22:15)
--- NOTE | 2021-05-27 15:43 | PN.HOSP_ITS ---
Subjective Subjective Patient feels that his withdrawal has been much smoother this time than his last admission. He does admit that he had not been drinking as much or as long this episode. No specific complaints this morning. He is hoping to be able to leave the next 24 hours if possible. 180 plan is for him to follow-up as an out patient after discharge. Objective Data Objective Data Vital Signs: Vital Signs Temp Pulse Resp BP Pulse Ox 98.7 F 83 18 150/91 H 96 05/27/21 14:00 05/27/21 14:00 05/27/21 14:00 05/27/21 14:00 05/27/21 14:00 Oxygen Delivery Method Room Air Weight: 88.9 kg Body Mass Index (BMI) 26.6 Intake & Output: Intake and Output for Last 24 Hours 05/25/21 05/26/21 05/27/21 23:59 23:59 23:59 Intake Total 1000 / 1800 1200 / 1200 Balance 1000 / 1800 1200 / 1200 Medical Nutrition Assessment Dietitian: Malnutrition Criteria Met Start: 05/26/21 16:08 Freq: Status: Active Protocol: Document 05/26/21 16:08 RMA (Rec: 05/26/21 16:08 RMA [id number]) Nutrition Malnutrition Evidence of Malnutrition Exists Yes Malnutrition (severe): Social/Behavioral/ Environmental Evidenced By Suboptimal Energy Intake ( Severe),Weight Loss (Severe) Clinical Problem Chronic Disease or Condition Related Malnutrition Etiology Severe protein-calorie malnutrition in the context of social circumstance related to inadequate oral intake/poor appetite/ETOH abuse Signs/Symptoms as evidenced by ~9% wt loss x past 2-3 months and PO meeting less than 50% estimated nutrition needs. Status Active Problem Recommendation Dietitian Recommendations/Changes Will continue regular diet as ordered. Will provide chocolate milkshake with 1 scoop of beneprotein Q day with breakfast. Adjust ONS as needed to optimize PO and replete calories/protein. Lab / Micro Data Result Diagrams: 05/26/21 07:10 05/27/21 07:00 Labs: Laboratory Results - last 24 hr 05/27/21 07:00: Sodium 135 L, Potassium 4.0, Chloride 104, Carbon Dioxide 27.0, Anion Gap 4 L, BUN 13, Creatinine 0.99, Estim Creat Clear Calc 106.69, Est GFR (MDRD) Af Amer 107, Est GFR (MDRD) Non-Af 88, BUN/Creatinine Ratio 13.1, Glucose 96, Calcium 9.0, Total Bilirubin 1.10 H, AST 63 H, ALT 65 H, Alkaline Phosphatase 88, Total Protein 7.3, Albumin 3.7, Globulin 3.6, Albumin/Globulin Ratio 1.0 Physical Exam Const alert, oriented x3, no apparent distress, average body habitus, healthy appearing and well nourished Constitutional Narrative: Middle-aged white male lying in bed sleeping but awakens easily, peers comfortable and nontoxic General Appearance: cooperative Exam Limitations: no limitations HEENT normocephalic, head/scalp atraumatic, hearing grossly normal bilaterally, moist oral mucous membranes and oropharynx normal Head and Scalp: normocephalic Resp normal respiratory effort, no retractions, no use of accessory muscles and clear to auscultation bilaterally Auscultation: Negative for crackles, rales, rhonchi or wheezes Cardio regular rate, regular rhythm, S1 normal heart sound, S2 normal heart sound, no murmurs, no rub, no gallops, no clicks and no JVD Cardio Narrative: Tachycardia resolved GI normal to inspection, nondistended, normoactive bowel sounds, soft to palpation, non-tender and non-distended; Negative for hepatosplenomegaly Extremity no clubbing, cyanosis or edema Peripheral Pulses: Yes pulses 2+ throughout Neuro oriented x3, moves all extremities and no focal motor deficits Sensorium / Orientation: awake and alert Speech: speech normal Psych affect normal Psych Narrative: Very pleasant and appropriately interactive Assessment & Plan Assessment/Plan (1) Alcohol withdrawal: (2) Alcohol abuse: (3) Erythrocytosis: PLAN: Acute alcohol withdrawal -Last drink was 6 to 7 hours prior to presentation -Has been drinking 12 12 ounce beers daily and 1 bottle of wine daily -Blood alcohol on presentation was 187.0 mg/dL -Continue phenobarbital taper -Possible discharge tomorrow if patient remained stable and feels well -[facility] protocol -Continue as needed Ativan -Continue thiamine/folate -Continue supportive medications for withdrawal symptoms -180 follow-up as an outpatient after discharge Erythrocytosis -Suspect this is related to his dehydration with his chronic alcohol use -Monitor Alcoholic hepatitis -Liver enzymes are slightly elevated -Trending down Tobacco abuse -Patient uses chewing tobacco -Patient not requiring nicotine replacement therapy Left nondisplaced comminuted fracture of the fourth metacarpal -A well-padded custom short arm volar splint placed by emergency department physician -Result of him punching a door approximately 1 week ago -Patient will need follow-up with outpatient orthopedics after discharge DVT prophylaxis -Low risk -Early ambulation protocol recommended CODE STATUS -Full code Charges/Coding Visit Charges Inpatient E&M: 08324 Subs Hosp L2
--- NOTE | 2021-05-27 16:35 | CHAPLAIN ---
Type of Pastoral Visit _x__ Initial Visit ___ Follow-up Visit ___ On-call Visit ___ General Patient Visit ___ Spiritual Assessment ___ Family Conference ___ Bereavement ___ Rapid Response ___ Code Blue ___ Other (describe below) Pastoral Care Referral From _x__ Patient ___ Family ___ Nurse ___ Physician ___ Molecular Geneticist ___ Solution Lead ___ Other (describe below) Sacrament/Intervention _x__ Active listening ___ Anointing ___ Latter-Day ___ Bereavement ___ Communion _x__ Terri exploration ___ _x__ Life review _x__ Prayer ___ Reconciliation ___ Sacrament of Sick _x__ Supportive presence ___ Wedding ___ Other (describe below) Pastoral Comments patient is watching TV; pt welcomes presence of this db2 developer; pt gives much life review, current events with relationships, emotional involvement with his actions and reactions, and processes verbally how he sees these in perspective to his alcohol abuse; pt identifies himself as a Jew that struggles to get it right much of the time and is very open to spiritual support and care; pt continued the conversation and then welcomed prayer for help; pt expressive about the help he felt in talking to a db2 developer
[2021-05-27 22:01] VITALS: BP 142/97; PULSE 70; RESP 18; TEMP 36.7; O2SAT 97
[2021-05-27] MEDS: traZODone 100 MG Tablet PO (22:03)
[2021-05-27] MEDS: 0.9% Saline Lock 10 ML Syringe IV (22:14)
[2021-05-28 02:15] VITALS: BP 134/82; PULSE 68; RESP 16; TEMP 37.1; O2SAT 98
[2021-05-28] MEDS: Phenobarbital 32.4 MG Tablet 64.8 MG PO ×3 (02:17→09:52)
[2021-05-28] MEDS: hydrOXYzine PAM 25 MG Capsule 50 MG PO ×2 (02:17→05:59)
[2021-05-28 05:54] VITALS: BP 128/85; PULSE 70; RESP 16; TEMP 36.4; O2SAT 98
[2021-05-28] MEDS: Folic Acid 1 MG Tablet PO (07:43)
[2021-05-28] MEDS: Thiamine Hydrochloride 100 MG Tablet PO (07:43)
[2021-05-28 09:48] VITALS: BP 151/98; PULSE 107; RESP 18; TEMP 36.7; O2SAT 99
--- NOTE | 2021-05-28 10:48 | DS.PCM_ITS ---
Providers Date of Admission: 05/26/21 Date of Discharge: 05/28/21 Primary Care Physician: No Primary Care Phys Reason For Visit: ETOH DETOX Diagnosis Discharge Diagnosis (1) Alcohol withdrawal: Status: Acute Code(s): F10.239 - Alcohol dependence with withdrawal, unspecified (2) Alcohol abuse: Status: Chronic Code(s): F10.10 - Alcohol abuse, uncomplicated (3) Erythrocytosis: Status: Chronic Code(s): D75.1 - Secondary polycythemia Hospital Course Operations None Procedures None Summary of Care Provided Minutes Spent on Discharge: 25 Hospital Course: Mr. Rizzo is a 41-year-old white male who presented to emergency department [facility] on 05/18/2021 with request for alcohol detox. The kojo olivo had been admitted here from 05/21/2020 through 05/24/2020 previously for acute alcohol detox and had been doing well up until approximately 3 weeks prior to presentation. He states at that time he started drinking approximately 12 12 ounce beers daily that were higher percentage alcohol and 1 bottle of wine daily. He reported his last drink was 6 to 7 hours prior to presentation. Upon presentation he felt like he was starting to have withdrawal symptoms to include tremor and nausea. In the emergency department his vital signs were overall unremarkable other than mild tachycardia and markedly elevated blood pressure at 184/130. His CBC was unremarkable his chemistry panel showed mild hyponatremia with a sodium of 135 and mild transaminase elevation due to alcoholic hepatitis. His talk screen was negative except for ethyl alcohol with a blood level of 187.0 mg/dL on admission. He was given low-dose phenobarbital in the emergency department and request for admission was made. We admitted him to the medical floor and placed him on a phenobarbital taper along with supportive medications. A nicotine patch was offered as he does use chewing tobacco however for he denied the need for this. He did well with regards to his detox and felt stable for discharge on the a.m. of 05/28/2021. He did follow up with 180 while he was hospitalized and has a plan for follow-up at 180 for IOP treatment. He is not interested in residential treatment at this time and has been instructed to follow-up by 05/30/2021 for assessment. Upon presentation he also complained of left hand pain. He reported that he punched a door approximately 1 week prior to presentation and felt like he broke his left hand. An x-ray was performed in the emergency department and showed a nondisplaced comminuted fracture of the fourth metacarpal with no angulation or displacement. A well-padded custom-made short arm volar splint was placed using 4 inch Ortho-Glass on the left hand and forearm. Given this fracture he was instructed to follow-up with orthopedic surgery within the next week and information for for follow-up was given to the patient at discharge. Patient was discharged home in stable condition on 05/28/2021. Discharge diagnoses: Acute alcohol withdrawal Erythrocytosis-resolved Alcoholic hepatitis-Resolved Left nondisplaced comminuted fracture of the fourth metacarpal Tobacco abuse Physical Exam Narrative Patient states he feels much better overall and is anxious to be discharged today if possible. Const alert, oriented x3, no apparent distress, average body habitus, healthy appearing and well nourished Constitutional Narrative: Middle-aged white male sitting up in a chair at the bedside watching television, appears comfortable nontoxic General Appearance: cooperative, comfortable, well kempt and well developed Orientation / Consciousness: awake Exam Limitations: no limitations Nutritional Appearance: overweight HEENT normocephalic, head/scalp atraumatic, hearing grossly normal bilaterally, moist oral mucous membranes and oropharynx normal Resp normal respiratory effort, no retractions, no use of accessory muscles and clear to auscultation bilaterally Auscultation: Negative for crackles, rales, rhonchi or wheezes Cardio regular rate, regular rhythm, S1 normal heart sound, S2 normal heart sound, no murmurs, no rub, no gallops, no clicks and no JVD Cardio Narrative: Tachycardia resolved GI normal to inspection, nondistended, normoactive bowel sounds, soft to palpation, non-tender and non-distended; Negative for hepatosplenomegaly Extremity no clubbing, cyanosis or edema Extremity Narrative: Left upper extremity with soft volar splint in place Neuro oriented x3, CN's II-XII intact bilaterally, moves all extremities and no focal motor deficits Sensorium / Orientation: awake and alert Speech: speech normal Motor Exam: strength 5/5 throughout Psych affect normal Psych Narrative: Very pleasant and appropriately interactive Medical Records Data Medical Nutrition Assessment Dietitian: Malnutrition Criteria Met Start: 05/26/21 16:08 Freq: Status: Active Protocol: Document 05/26/21 16:08 RMA (Rec: 05/26/21 16:08 RMA [id number]) Nutrition Malnutrition Evidence of Malnutrition Exists Yes Malnutrition (severe): Social/Behavioral/ Environmental Evidenced By Suboptimal Energy Intake ( Severe),Weight Loss (Severe) Clinical Problem Chronic Disease or Condition Related Malnutrition Etiology Severe protein-calorie malnutrition in the context of social circumstance related to inadequate oral intake/poor appetite/ETOH abuse Signs/Symptoms as evidenced by ~9% wt loss x past 2-3 months and PO meeting less than 50% estimated nutrition needs. Status Active Problem Recommendation Dietitian Recommendations/Changes Will continue regular diet as ordered. Will provide chocolate milkshake with 1 scoop of beneprotein Q day with breakfast. Adjust ONS as needed to optimize PO and replete calories/protein. Weight / BMI Weight Weight: 88.9 kg Body Mass Index (BMI) 26.6 ABG / Lab / Microbiology Data Result Diagrams: 05/26/21 07:10 05/27/21 07:00 D/C Instructions Discharge Diet: No restrictions Discharge Activity: Return to Normal Activity Meaningful Use Info Meaningful Use Diagnoses (Choose all that apply): None applicable Discharge Plan Admission Admit Date/Time: 05/26/21 08:34 Primary Reason for Your Visit: Alcohol detox Attending Provider: Emily Torres Primary Care Provider: Care Physician,No Primary Discharge Orders/Prescriptions Referrals / Follow Up: Sonido Goss DO [STAFF PHYSICIAN] - In 1 Week (R 4th Metacarpal fracture call to be seen [place]) Care Physician,No Primary [Primary Care Provider] - Disposition Disposition (needs filled in before D/C Order can be placed): Home, Self Care Charges/Coding Visit Charges Inpatient E&M: 84229 Disch Hosp
== END 2021-05-28 11:40 | disposition home or self-care (01) | DRG 775 ==
LOC: ED 08:32 → MS3 05-27 07:19
PROVIDERS: Admitting Provider Internal Medicine; Emergency Provider Emergency Medicine; Visit Provider Internal Medicine
DX: F10.239 Alcohol dependence with withdrawal, unspecified (principal); F10.229 Alcohol dependence with intoxication, unspecified; E86.0 Dehydration; S62.325A Displaced fracture of shaft of fourth metacarpal bone, left hand, initial encounter for closed fracture; F17.220 Nicotine dependence, chewing tobacco, uncomplicated; D75.1 Secondary polycythemia; K70.10 Alcoholic hepatitis without ascites; R03.0 Elevated blood-pressure reading, without diagnosis of hypertension; Y90.6 Blood alcohol level of 120-199 mg/100 ml; W22.09XA Striking against other stationary object, initial encounter; Y93.89 Activity, other specified; Y92.9 Unspecified place or not applicable; Z86.16 Personal history of COVID-19; E87.1 Hypo-osmolality and hyponatremia
CPT/HCPCS: 29125; 36415; 71045; 73130; 80053; 80307; 81001; 82077; 83690; 84100; 84484; 85025; 93005; 96361; 96374; 97802; 99218; 99251; 99285; J7030; A4216; G0378; G0463; J2405